=== PATIENT | female | born 1975 | race Caucasian/White ===

== ENCOUNTER 2016-12-10 12:01 | Emergency (ER) | payer SELFPAY ==
[2016-12-10 12:08] VITALS: BP 135/99
[2016-12-10] MEDS ORDERED: OXYCODONE-ACETAMINOPHEN 5-325 MG TABLET PO ONE (12:09)
[2016-12-10] MEDS ORDERED: PENICILLIN V POTASSIUM 500 MG TABLET PO ONE (12:09)
--- NOTE | 2016-12-10 12:12 | ER Document Report ---
HPI - HPI Patient complains to provider of: dental pain Onset: Other - 4 days Quality of pain: Achy, Throbbing Severity: Severe Pain Level: 5 Associated Symptoms: None Exacerbated by: Denies Relieved by: Denies Similar symptoms previously: No Recently seen / treated by doctor: No Past Medical History - General Information source: Patient - Social History Smoking Status: Unknown if Ever Smoked Cigarette use (# per day): No Chew tobacco use (# tins/day): No Frequency of alcohol use: None Drug Abuse: None Family History: None Past Surgical History: Reports: Hx Section Vertical Provider Document - CONSTITUTIONAL Agree With Documented VS: Yes Exam Limitations: No Limitations General Appearance: WD/WN, No Apparent Distress - HEENT HEENT: Atraumatic, Normocephalic. negative: Pharyngeal Exudate, Pharyngeal Erythema Mouth Diagram: 1 - c/o pain, opens mouth wide, no obvious cavity, no pustule, no erythema/no swelling, No peritonsillar abscess good clear voice no trismus - NECK Neck: Normal Inspection, Supple. negative: Lymphadenopathy-Left, Lymphadenopathy-Right - RESPIRATORY Respiratory: Breath Sounds Normal, No Respiratory Distress O2 Sat by Pulse Oximetry: 97 - CARDIOVASCULAR Cardiovascular: Regular Rate, Regular Rhythm - NEURO Level of Consciousness: Awake, Alert, Appropriate Motor/Sensory: No Motor Deficit - DERM Integumentary: Warm, Dry Course - Re-evaluation Re-evalutation: 12/10/16 Patient provided with written dental resource information. Patient also reports she has taken Percocet without problems. Instructed on the importance of follow-up with a dentist. - Vital Signs Vital signs: Temp Pulse Resp BP Pulse Ox 98.2 F 74 16 135/99 H 97 12/10/16 12:07 12/10/16 12:07 12/10/16 12:07 12/10/16 12:07 12/10/16 12:07 Discharge - Discharge Clinical Impression: Pain, dental, Elevated blood pressure reading Condition: Stable Disposition: HOME, SELF-CARE Instructions: Toothache ([facility]), Penicillin V K ([facility]), Acetaminophen with Codeine ([facility]) Additional Instructions: *You have been evaluated for dental pain *Take medications as prescribed *Follow up with a dentist *Monitor your blood pressure. Your blood pressure was elevated today. This may be because you were anxious, in pain or because you need medication. It is important to follow up with your primary care provider for full evaluation. *Return to ED for worsening condition, changes, needs Prescriptions: Acetaminophen with Codeine [Tylenol with Codeine #3 Tablet] 1 each PO QID #15 tablet Penicillin V Potassium [Penicillin Vk 500 mg Tablet] 500 mg PO BID #20 tablet Forms: Elevated Blood Pressure
== END 2016-12-10 12:25 | disposition home or self-care (01) ==
LOC: ER 12:01
DX: K08.89 Other specified disorders of teeth and supporting structures (principal); R03.0 Elevated blood-pressure reading, without diagnosis of hypertension
CPT/HCPCS: 99282

== ENCOUNTER 2017-01-06 16:34 | Emergency (ER) | payer SELFPAY ==
--- NOTE | 2017-01-06 17:03 | ER Document Report ---
ED Medical Screen (RME) - General Stated Complaint: DIZZINESS Notes: Patient complains of dizziness for a while. Also complains of increased urination. c/o cough. No known fever. Patient has a history of anemia. She states that while she is standing at her job, had starts spinning. I have greeted and performed a rapid initial assessment of this patient. A comprehensive ED assessment and evaluation of the patient, analysis of test results and completion of the medical decision making process will be conducted by additional ED providers. TRAVEL OUTSIDE OF THE [place] IN LAST 30 DAYS: No - Related Data Allergies/Adverse Reactions: No Known Allergies Allergy (Verified 01/06/17 17:01) Past Medical History Renal/ Medical History: Denies: Hx Peritoneal Dialysis Past Surgical History: Reports: Hx Section Physical Exam - Vital signs Vitals: Temp Pulse Resp BP Pulse Ox 98.1 F 71 16 124/72 98 01/06/17 16:50 01/06/17 16:50 01/06/17 16:50 01/06/17 16:50 01/06/17 16:50 - Notes Notes: Patient walks with steady gait. - Respiratory Respiratory status: No respiratory distress Breath sounds: Normal Course - Vital Signs Vital signs: Temp Pulse Resp BP Pulse Ox 98.1 F 71 16 124/72 98 01/06/17 16:50 01/06/17 16:50 01/06/17 16:50 01/06/17 16:50 01/06/17 16:50
[2017-01-06 17:34] LABS: ABSOLUTE BASOPHILS # (AUTO) 0.1 10^3/uL (0.0-0.2); ABSOLUTE EOSINOPHILS # (AUTO) 0.3 10^3/uL (0.0-0.6); ABSOLUTE LYMPHOCYTES (AUTO) 1.5 10^3/uL (0.5-4.7); ABSOLUTE MONOCYTES (AUTO) 0.5 10^3/uL (0.1-1.4); ABSOLUTE NEUT (AUTO) 4.2 10^3/uL (1.7-8.2); BASOPHILS % (AUTO) 0.9 % (0-2); EOSINOPHILS % (AUTO) 4.2 % (0-6); HEMATOCRIT 29.7 % (36.0-47.0); HEMOGLOBIN 9.3 g/dL (12.0-15.5); HGB HCT DIFFERENCE -1.8; MEAN CORPUSCULAR HEMOGLOBIN 22.2 pg (27.0-33.4); MEAN CORPUSCULAR HGB CONC 31.2 g/dL (32.0-36.0); MEAN CORPUSCULAR VOLUME 71 fl (80-97); MONOCYTES % (AUTO) 8.2 % (3-13); RED BLOOD COUNT 4.18 10^6/uL (3.72-5.28); RED CELL DISTRIBUTION WIDTH 18.3 % (11.5-14.0); SEGMENTED NEUTROPHILS % (AUTO) 63.7 % (42-78); WHITE BLOOD COUNT 6.6 10^3/uL (4.0-10.5)
[2017-01-06 17:56] LABS: ALANINE AMINOTRANSFERASE 18 U/L (9-52); ALKALINE PHOSPHATASE 58 U/L (38-126); ANION GAP 12 (5-19); ASPARTATE AMINO TRANSFERASE 23 U/L (14-36); BILIRUBIN,DIRECT 0.2 mg/dL (0.0-0.4); BILIRUBIN,TOTAL 0.4 mg/dL (0.2-1.3); BLOOD UREA NITROGEN 15 mg/dL (7-20); CALCIUM 9.5 mg/dL (8.4-10.2); CARBON DIOXIDE 27 mmol/L (22-30); CHLORIDE 104 mmol/L (98-107); CREATININE RESULT 0.59 mg/dL (0.52-1.25); GLUCOSE 77 mg/dL (75-110); LIPASE 93.8 U/L (23-300); POTASSIUM 3.8 mmol/L (3.6-5.0); SODIUM 143.2 mmol/L (137-145); TOTAL PROTEIN 7.5 g/dL (6.3-8.2)
[2017-01-06 17:58] LABS: APPEARANCE,URINE CLEAR; BILIRUBIN,URINE NEGATIVE (NEGATIVE); GLUCOSE, URINE NEGATIVE (NEGATIVE); KETONES,URINE NEGATIVE (NEGATIVE); LEUKOCYTE ESTERASE,URINE TRACE (NEGATIVE); NITRITE,URINE NEGATIVE (NEGATIVE); PROTEIN,URINE 30 mg/dL (NEGATIVE); URINE SPECIFIC GRAVITY 1.012; UROBILINOGEN,URINE NEGATIVE mg/dL (<2.0)
--- NOTE | 2017-01-06 18:13 | ER Document Report ---
ED General - General Chief Complaint: Urinary Frequency Stated Complaint: DIZZINESS Mode of Arrival: Ambulatory Information source: Patient Notes: 41-year-old female presents with complaints of left flank pain urinary frequency. Patient notes she's urinated 7 times in one hour. Denies any fevers or chills admits to mild nausea TRAVEL OUTSIDE OF THE [place] IN LAST 30 DAYS: No - HPI Onset: Just prior to arrival Onset/Duration: Sudden Quality of pain: Achy Severity: Mild Pain Level: 1 Associated symptoms: Nausea Exacerbated by: Denies Relieved by: Denies Similar symptoms previously: No Recently seen / treated by doctor: No - Related Data Allergies/Adverse Reactions: No Known Allergies Allergy (Verified 01/06/17 17:01) Past Medical History - Social History Smoking Status: Never Smoker Cigarette use (# per day): No Chew tobacco use (# tins/day): No Smoking Education Provided: No Family History: None Renal/ Medical History: Denies: Hx Peritoneal Dialysis Past Surgical History: Reports: Hx Section Review of Systems - Review of Systems Notes: REVIEW OF SYSTEMS: CONSTITUTIONAL : Denies fever, chills, or sweats. Denies recent illness. EENT: Denies eye, ear, throat, or mouth pain or symptoms. Denies nasal or sinus congestion or discharge. Denies throat, tongue, or mouth swelling or difficulty swallowing. CARDIOVASCULAR: Denies chest pain. Denies palpitations or racing or irregular heart beat. Denies ankle edema. RESPIRATORY: Denies cough, cold, or chest congestion. Denies shortness of breath, difficulty breathing, or wheezing. GASTROINTESTINAL: Admits to left flank pain nausea GENITOURINARY: Admits to urinary frequency FEMALE GENITOURINARY: Denies vaginal bleeding, heavy or abnormal periods, irregular periods. Denies vaginal discharge or odor. MUSCULOSKELETAL: Denies back or neck pain or stiffness. Denies joint pain or swelling. SKIN: Denies rash, lesions or sores. HEMATOLOGIC : Denies easy bruising or bleeding. LYMPHATIC: Denies swollen, enlarged glands. NEUROLOGICAL: Denies confusion or altered mental status. Denies passing out or loss of consciousness. Denies dizziness or lightheadedness. Denies headache. Denies weakness or paralysis or loss of use of either side. Denies problems with gait or speech. Denies sensory loss, numbness, or tingling. Denies seizures. PSYCHIATRIC: Denies anxiety or stress. Denies depression, suicidal ideation, or homicidal ideation. ALL OTHER SYSTEMS REVIEWED AND NEGATIVE. Dictation was performed using [id number] voice recognition software PHYSICAL EXAMINATION: GENERAL: Well-appearing, well-nourished and in no acute distress. HEAD: Atraumatic, normocephalic. EYES: Pupils equal round and reactive to light, extraocular movements intact, conjunctiva are normal. ENT: Nares patent, oropharynx clear without exudates. Moist mucous membranes. NECK: Normal range of motion, supple without lymphadenopathy LUNGS: Breath sounds clear to auscultation bilaterally and equal. No wheezes rales or rhonchi. HEART: Regular rate and rhythm without murmurs ABDOMEN: Soft, nontender, nondistended abdomen. No guarding, no rebound. No masses appreciated. Mild left CVA tenderness Female : deferred Musculoskeletal: Normal range of motion, no pitting or edema. No cyanosis. NEUROLOGICAL: Cranial nerves grossly intact. Normal speech, normal gait. Normal sensory, motor exams PSYCH: Normal mood, normal affect. SKIN: Warm, Dry, normal turgor, no rashes or lesions noted. Physical Exam - Vital signs Vitals: Temp Pulse Resp BP Pulse Ox 98.1 F 71 16 124/72 98 01/06/17 16:50 01/06/17 16:50 01/06/17 16:50 01/06/17 16:50 01/06/17 16:50 Course - Re-evaluation Re-evalutation: 01/06/17 18:16 Patient has questionable urinary tract infection but given her symptoms I will treat her for her complaints. Patient's otherwise stable for discharge After performing a Medical Screening Examination, I estimate there is LOW risk for ACUTE APPENDICITIS, BOWEL OBSTRUCTION, ACUTE CHOLECYSTITIS, PERFORATED DIVERTICULITIS, INCARCERATED HERNIA, PANCREATITIS, PELVIC INFLAMMATORY DISEASE, PERFORATED ULCER, ECTOPIC , or TUBO-OVARIAN ABSCESS, thus I consider the discharge disposition reasonable. Also, there is no evidence or peritonitis , sepsis, or toxicity. The patient and I have discussed the diagnosis and risks , and we agree with discharging home with close follow-up with the understanding that symptoms and presentations can change. We also discussed returning to the Emergency Department immediately if new or worsening symptoms occur. We have discussed the symptoms which are most concerning (e.g., bloody stool, fever, changing or worsening pain, vomiting) that necessitate immediate return. - Vital Signs Vital signs: Temp Pulse Resp BP Pulse Ox 98.1 F 71 16 124/72 98 01/06/17 16:50 01/06/17 16:50 01/06/17 16:50 01/06/17 16:50 01/06/17 16:50 - Laboratory Result Diagrams: 01/06/17 17:10 01/06/17 17:10 Laboratory results interpreted by me: 01/06/17 01/06/17 17:10 17:10 Hgb 9.3 L Hct 29.7 L MCV 71 L MCH 22.2 L MCHC 31.2 L RDW 18.3 H Urine Protein 30 H Urine Blood LARGE H Ur Leukocyte Esterase TRACE H Discharge - Discharge Clinical Impression: Urinary frequency UTI (urinary tract infection) Qualifiers: Urinary tract infection type: acute cystitis Hematuria presence: with hematuria Qualified Code(s): N30.01 - Acute cystitis with hematuria Instructions: Urinary Tract Infection ([facility]) Additional Instructions: Follow up with your physician tomorrow for further care or return to the ED IMMEDIATELY if symptoms worsen or new concerns occur Prescriptions: Ciprofloxacin HCl [Cipro 500 mg Tablet] 500 mg PO BID #10 tablet Ondansetron [Zofran Odt 4 mg Tablet] 1 - 2 tab PO Q4H PRN #15 tab.rapdis PRN Reason: For Nausea/Vomiting
[2017-01-06 18:34] VITALS: BP 134/70
== END 2017-01-06 18:43 | disposition home or self-care (01) ==
LOC: ER 16:34
DX: N30.01 Acute cystitis with hematuria (principal); R35.0 Frequency of micturition; R42 Dizziness and giddiness; R10.9 Unspecified abdominal pain
CPT/HCPCS: 36415; 80053; 81001; 83690; 84702; 85025; 99283

== ENCOUNTER 2017-02-13 19:54 | Emergency (ER) | payer SELFPAY ==
[2017-02-13] MEDS ORDERED: HYDROCODONE/ACETAMINOPHEN 5-325 MG TABLET PO ONE (20:50)
--- NOTE | 2017-02-13 20:53 | ER Document Report ---
ED General - General Chief Complaint: Toothache Stated Complaint: TOOTH ACHE,CHEST PAIN Mode of Arrival: Ambulatory Information source: Patient Notes: Patient is a 41-year-old female who presents with right lower jaw and tooth pain that started 2 days ago. She states she has been seen at the [facility] and saw a dentist who "tapped on her teeth with a metal tool" and she has had pain ever since. She states the pain is radiating into her jaw and up the side of her face. She has tried [id number] pain medication which has not provided relief. She denies any facial swelling, dizziness, headache, fever, chills, nausea or vomiting. TRAVEL OUTSIDE OF THE [place] IN LAST 30 DAYS: No - Related Data Allergies/Adverse Reactions: No Known Allergies Allergy (Verified 01/06/17 17:01) Past Medical History - General Information source: Patient - Social History Smoking Status: Unknown if Ever Smoked Family History: None Renal/ Medical History: Denies: Hx Peritoneal Dialysis Past Surgical History: Reports: Hx Section Review of Systems - Review of Systems Constitutional: See HPI EENT: See HPI Cardiovascular: No symptoms reported Respiratory: No symptoms reported Gastrointestinal: No symptoms reported Genitourinary: No symptoms reported Female Genitourinary: No symptoms reported Musculoskeletal: No symptoms reported Skin: No symptoms reported Hematologic/Lymphatic: No symptoms reported Neurological/Psychological: No symptoms reported Physical Exam - Notes Notes: PHYSICAL EXAM: CONSTITUTIONAL: Alert and oriented, well-appearing and in no acute distress. HENT: Normocephalic, atraumatic. Oropharynx clear without erythema, tonsilar exudate or malocclusion. Trachea midline. Uvula midline. Moist mucous membranes. No gingival or buccal mucosal swelling or area of fluctuance that would indicate a dental abscess. She is tender around the gumline around tooth # 32 and 31. EYES: Pupils equal round and reactive to light, EOM intact. Sclera anicteric, conjunctiva are normal. No entrapment. NECK: supple without lymphadenopathy. ROM intact. HEART: Regular rate and rhythm without murmurs. LUNGS: CTAB and equal. No wheezes, rales or rhonchi. EXTREMITIES: Normal range of motion, no pitting edema. No cyanosis. Cap Refill < 3 seconds. NEURO: Cranial nerves grossly intact. Normal sensory/motor exams. PSYCH: Normal mood, normal affect. SKIN: Warm and dry. Normal turgor. No rashes or lesions noted. Course - Re-evaluation Re-evalutation: 02/13/17 21:23 Patient seen and examined. Given by mouth pain medication. No evidence of cellulitis, dental abscess. At this time low suspicion for Ludwigs angina. Discussed need for her to follow-up with dentist. Advised to return if she expands a severe pain, swelling, fever or chills. Will provide prescription for antibiotics for empiric coverage as well as pain medication. At this time, will discharge with return precautions and follow-up recommendations. Verbal discharge instructions given at the bedside and opportunity for questions given. Medication warnings reviewed. Patient is in agreement with this plan and has verbalized understanding of return precautions and the need for primary care follow-up in the next 24-72 hours. Discharge - Discharge Clinical Impression: Toothache Condition: Stable Disposition: HOME, SELF-CARE Instructions: [facility] Additional Instructions: TOOTHACHE: Your pain is due to dental decay. The tooth must be repaired in order for you to feel better. You will, therefore, be referred to a dentist. We do not have dentists on the staff at [facility]. Severe swelling or drainage around a tooth usually means a dental abscess. This also requires evaluation and treatment by the dentist, but antibiotics may be prescribed while awaiting dental treatment. You should be rechecked immediately if you develop major swelling of the face, increasing pain, a lump in the jaw or gums, headache, difficulty swallowing, or fever. ORAL NARCOTIC MEDICATION: You have been given a prescription for pain control. This medication is a narcotic. It's best taken with food, as nausea can result if taken on an empty stomach. Don't operate machinery or drive within six hours of taking this medication. Do not combine this medicine with alcohol, or with any medication which can cause sedation (such as cold tablets or sleeping pills) unless you get permission from the physician. Narcotics tend to cause constipation. If possible, drink plenty of fluids and eat a diet high in fiber and fruits. Please be aware that prescription narcotics also have the potential for abuse. People become addicted to these medications because of the general sense of wellbeing that they induce. This feeling along with a significant reduction in tension, anxiety, and aggression provides a stimulating seductive quality to these drugs. Once your pain is under control, we encourage you to discard your unused narcotics. FOLLOW-UP CARE: You have been referred for follow-up care to the dentists listed below. Call the dentists office for an appointment as you were instructed or within the next two days. If you experience worsening or a significant change in your symptoms, notify the physician immediately or return to the Emergency Department at any time for re-evaluation. [facility] [place] [facility] [address] [place], [place] Joo mornings, by appointment [facility] [address] [place] [address] [facility] [address] [facility] [address] [facility] [address] [email or web address] [facility] [address] [place] [address] Monday- 8:00am to 5:00 pm Will see patients from other [facility]. Charges based on income and family size and accepts Medicare, Medicaid, and Insurances Will pull molars [facility] [id number] Hours of Operation 8:00 am - 4:30 pm weekdays The following dental offices accept Medicaid: [facility] Dr. Levine Dr. Jacobs Dr. Moreno Dr. Cano Albert Yang Lutsavage, and [facility] oral surgery Dr. Cheng ([place]) Dr. Reyes ([place]) [facility] Drs. Figueredo and Yogesh ([place]) Dr. Mayo ([place]) [facility] Dr. Manriquez ([place]) Drs. Loera and ([place]) Medicaid Care Line Prescriptions: Amox Tr/Potassium Clavulanate [Augmentin 875-125 Tablet] 1 tab PO BID 10 Days Hydrocodone/Acetaminophen [[place] 5-325 mg Tablet] 1 tab PO Q6H PRN #10 tablet PRN Reason: Naproxen [Naprosyn 250 mg Tablet] 250 mg PO DAILY PRN #14 tablet PRN Reason: Forms: Elevated Blood Pressure
[2017-02-13 21:36] VITALS: BP 165/100
== END 2017-02-13 21:35 | disposition home or self-care (01) ==
LOC: ER 19:54
DX: K08.89 Other specified disorders of teeth and supporting structures (principal); Z98.890 Other specified postprocedural states
CPT/HCPCS: 99282

== ENCOUNTER 2017-07-23 15:50 | Emergency (ER) | payer SELFPAY ==
--- NOTE | 2017-07-23 17:14 | ER Document Report ---
ED GI/ - General Mode of Arrival: Ambulatory Information source: Patient TRAVEL OUTSIDE OF THE U.S. IN LAST 30 DAYS: No <ALONDRA CASTRO - Last Filed: 07/23/17 17:57> <ALICIA HUSAIN - Last Filed: 07/23/17 18:08> - General Chief Complaint: Pelvic Pain Stated Complaint: PELVIC PAIN,DIZZY,BACK PAIN Time Seen by Provider: 07/23/17 16:37 Notes: Patient is a 41-year-old female presenting to the emergency department for multiple symptoms including hematuria, abdominal and back pain, headache, dizziness and frequency. Patient states that her last menstrual period was 2016. Patient states that she is not supposed to be on her menstrual period but that she noticed some blood in her urine recently. Patient states her abdominal and back pain is waxing and waning. Patient states she has pain after she urinates but denies any burning sensations. Patient states that she has a history of tubal ligation, kidney stones and UTIs. Patient also complains of chills and sweats but denies any known fever. (ALONDRA CASTRO) - Related Data Allergies/Adverse Reactions: No Known Allergies Allergy (Verified 07/23/17 16:02) Past Medical History - General Information source: Patient - Social History Smoking Status: Former Smoker Cigarette use (# per day): No Chew tobacco use (# tins/day): No Smoking Education Provided: No Frequency of alcohol use: None Drug Abuse: None Family History: None Patient has suicidal ideation: No Patient has homicidal ideation: No Renal/ Medical History: Reports: Hx Kidney Stones Past Surgical History: Reports: Hx Section, Hx Tubal Ligation - Immunizations Hx Diphtheria, Pertussis, Tetanus Vaccination: No <ALONDRA CASTRO - Last Filed: 07/23/17 17:57> Review of Systems - Review of Systems Constitutional: See HPI, Chills, Malaise, Weakness EENT: No symptoms reported Cardiovascular: See HPI, Dizziness. denies: Chest pain Respiratory: No symptoms reported Gastrointestinal: See HPI, Abdominal pain. denies: Diarrhea, Nausea, Vomiting Genitourinary: See HPI, Dysuria - pain after urinating, Frequency. denies: Burning Female Genitourinary: See HPI, Last menstrual period - 07/03/17 Musculoskeletal: See HPI, Back pain Skin: No symptoms reported Hematologic/Lymphatic: No symptoms reported Neurological/Psychological: See HPI, Headaches -: Yes All other systems reviewed and negative <ALONDRA CASTRO - Last Filed: 07/23/17 17:57> Physical Exam <ALONDRA CASTRO - Last Filed: 07/23/17 17:57> <ALICIA HUSAIN - Last Filed: 07/23/17 18:08> - Vital signs Vitals: Temp Pulse Resp BP Pulse Ox 98.4 F 78 16 148/95 H 98 07/23/17 16:02 07/23/17 16:02 07/23/17 16:02 07/23/17 16:02 07/23/17 16:02 - Notes Notes: GENERAL: Alert, interacts well. No acute distress. HEAD: Normocephalic, atraumatic. EYES: Pupils equal, round, and reactive to light. Extraocular movements intact. ENT: Oral mucosa moist, tongue midline. NECK: Full range of motion. Supple. Trachea midline. LUNGS: Clear to auscultation bilaterally, no wheezes, rales, or rhonchi. No respiratory distress. HEART: Regular rate and rhythm. No murmurs, gallops, or rubs. ABDOMEN: Soft, non-tender. Non-distended. Bowel sounds present in all 4 quadrants. EXTREMITIES: Moves all 4 extremities spontaneously. No edema. No cyanosis. NEUROLOGICAL: Alert and oriented x3. Normal speech. PSYCH: Normal affect, normal mood. SKIN: Warm, dry, normal turgor. No rashes or lesions noted. (ALONDRA CASTRO) Course - Laboratory Result Diagrams: 07/23/17 17:00 07/23/17 17:00 <ALONDRA CASTRO - Last Filed: 07/23/17 17:57> - Laboratory Result Diagrams: 07/23/17 17:00 07/23/17 17:00 <ALICIA HUSAIN - Last Filed: 07/23/17 18:08> - Re-evaluation Re-evalutation: 07/23/17 17:53 CBC shows mild anemia with hemoglobin 10.6, CMP grossly unremarkable, test is negative, urinalysis shows trace leukocyte esterase, no true evidence of urinary tract infection however this will be sent for culture given her symptoms, patient may well be perimenopausal, when inquiring about the age at which her mother had menopause patient states she never met her genetic mother so she does not know the answer to this question. Patient is recommended to follow-up with her [facility] for further testing should she continue to have irregular periods. 07/23/17 17:54 Patient was offered a muscle relaxer for her low back pain, does not have any signs of cauda equina. (ALICIA HUSAIN) - Vital Signs Vital signs: Temp Pulse Resp BP Pulse Ox 98.6 F 54 L 20 118/94 H 100 07/23/17 17:53 07/23/17 17:53 07/23/17 17:53 07/23/17 17:53 07/23/17 17:53 - Laboratory Laboratory results interpreted by me: 07/23/17 07/23/17 07/23/17 17:00 17:00 17:00 Hgb 10.6 L Hct 34.1 L MCV 72 L MCH 22.3 L MCHC 31.2 L RDW 18.8 H Glucose 70 L Ur Leukocyte Esterase TRACE H Discharge <ALONDAR CASTRO - Last Filed: 07/23/17 17:57> <ALICIA HUSAIN - Last Filed: 07/23/17 18:08> - Discharge Clinical Impression: Vaginal bleeding between periods Hypertension Qualifiers: Hypertension type: essential hypertension Qualified Code(s): I10 - Essential ( primary) hypertension Low back pain Qualifiers: Chronicity: acute Back pain laterality: bilateral Sciatica presence: without sciatica Qualified Code(s): M54.5 - Low back pain Condition: Stable Disposition: HOME, SELF-CARE Instructions: Low Back Pain ([facility]), Menopausal Symptoms ([facility]), Vaginal Bleeding ([facility]) Prescriptions: Methocarbamol [Robaxin 750 mg Tablet] 750 mg PO ASDIR PRN #40 tablet PRN Reason: Print Language: Czech Scribe Attestation: 07/23/17 18:08 I personally performed the services described in the documentation, reviewed and edited the documentation which was dictated to the scribe in my presence, and it accurately records my words and actions. (ALICIA HUSAIN) Scribe Documentation - Scribe Written by Frederick:: Frederick Collins, 07/23/17 17:45 acting as scribe for Dr.:: Rosa <ALONDRA CASTRO - Last Filed: 07/23/17 17:57>
[2017-07-23 17:15] LABS: ABSOLUTE BASOPHILS # (AUTO) 0.1 10^3/uL (0.0-0.2); ABSOLUTE EOSINOPHILS # (AUTO) 0.3 10^3/uL (0.0-0.6); ABSOLUTE LYMPHOCYTES (AUTO) 2.2 10^3/uL (0.5-4.7); ABSOLUTE MONOCYTES (AUTO) 0.7 10^3/uL (0.1-1.4); ABSOLUTE NEUT (AUTO) 4.1 10^3/uL (1.7-8.2); APPEARANCE,URINE CLEAR; BILIRUBIN,URINE NEGATIVE (NEGATIVE); EOSINOPHILS % (AUTO) 3.7 % (0-6); GLUCOSE, URINE NEGATIVE (NEGATIVE); HEMATOCRIT 34.1 % (36.0-47.0); HEMOGLOBIN 10.6 g/dL (12.0-15.5); HGB HCT DIFFERENCE -2.3; KETONES,URINE NEGATIVE (NEGATIVE); LEUKOCYTE ESTERASE,URINE TRACE (NEGATIVE); MEAN CORPUSCULAR HEMOGLOBIN 22.3 pg (27.0-33.4); MEAN CORPUSCULAR HGB CONC 31.2 g/dL (32.0-36.0); MEAN CORPUSCULAR VOLUME 72 fl (80-97); NITRITE,URINE NEGATIVE (NEGATIVE); PROTEIN,URINE NEGATIVE (NEGATIVE); RED BLOOD COUNT 4.75 10^6/uL (3.72-5.28); RED CELL DISTRIBUTION WIDTH 18.8 % (11.5-14.0); SEGMENTED NEUTROPHILS % (AUTO) 55.3 % (42-78); UROBILINOGEN,URINE NEGATIVE mg/dL (<2.0); WHITE BLOOD COUNT 7.4 10^3/uL (4.0-10.5)
[2017-07-23 17:31] LABS: ALANINE AMINOTRANSFERASE 24 U/L (9-52); ALBUMIN 4.3 g/dL (3.5-5.0); ALKALINE PHOSPHATASE 56 U/L (38-126); ANION GAP 12 (5-19); ASPARTATE AMINO TRANSFERASE 20 U/L (14-36); BILIRUBIN,DIRECT 0.4 mg/dL (0.0-0.4); BILIRUBIN,TOTAL 0.5 mg/dL (0.2-1.3); BLOOD UREA NITROGEN 12 mg/dL (7-20); CALCIUM 9.5 mg/dL (8.4-10.2); CARBON DIOXIDE 26 mmol/L (22-30); CHLORIDE 104 mmol/L (98-107); CREATININE RESULT 0.56 mg/dL (0.52-1.25); GLUCOSE 70 mg/dL (75-110); POTASSIUM 3.8 mmol/L (3.6-5.0); TOTAL PROTEIN 7.8 g/dL (6.3-8.2)
[2017-07-23 17:54] VITALS: BP 118/94
== END 2017-07-23 18:05 | disposition home or self-care (01) ==
LOC: ER 15:50
DX: N93.8 Other specified abnormal uterine and vaginal bleeding (principal); I10 Essential (primary) hypertension; M54.5 Low back pain; R10.2 Pelvic and perineal pain; R42 Dizziness and giddiness; R31.9 Hematuria, unspecified; R68.83 Chills (without fever); Z87.891 Personal history of nicotine dependence; Z98.51 Tubal ligation status; Z87.442 Personal history of urinary calculi; Z87.440 Personal history of urinary (tract) infections
CPT/HCPCS: 36415; 80053; 81001; 84703; 85025; 87086; 99284

== ENCOUNTER 2017-07-30 16:13 | Emergency (ER) | payer SELFPAY ==
[2017-07-30 16:29] VITALS: BP 124/79
[2017-07-30] MEDS ORDERED: HYDROCODONE/ACETAMINOPHEN 5-325 MG TABLET PO ONE (16:44)
--- NOTE | 2017-07-30 16:46 | ER Document Report ---
ED Medical Screen (RME) - General Chief Complaint: Abdominal Pain Stated Complaint: TOOTHACHE, DIZZINESS Time Seen by Provider: 07/30/17 16:29 Mode of Arrival: Ambulatory Information source: Patient TRAVEL OUTSIDE OF THE [place] IN LAST 30 DAYS: No - HPI Patient complains to provider of: Pelvic pain with abnormal bleeding for at least 2 weeks, toothache Notes: 07/30/17 16:45 Patient is a 41-year-old female presenting to the emergency room today complaining of abnormal vaginal bleeding that has been going on for at least the past 2 weeks, she is feeling generalized weakness associated with this, she is also complaining of a toothache that started bothering her this morning - Related Data Allergies/Adverse Reactions: No Known Allergies Allergy (Verified 07/23/17 16:02) Past Medical History Renal/ Medical History: Reports: Hx Kidney Stones. Denies: Hx Peritoneal Dialysis Past Surgical History: Reports: Hx Section, Hx Tubal Ligation - Immunizations Hx Diphtheria, Pertussis, Tetanus Vaccination: No History of Influenza Vaccine for 07/2017 - 12/2017 Season: Unknown Physical Exam - Vital signs Vitals: Temp Pulse Resp BP Pulse Ox 98.8 F 71 20 124/79 98 07/30/17 16:26 07/30/17 16:26 07/30/17 16:26 07/30/17 16:26 07/30/17 16:26 Course - Vital Signs Vital signs: Temp Pulse Resp BP Pulse Ox 98.8 F 71 20 124/79 98 07/30/17 16:26 07/30/17 16:26 07/30/17 16:26 07/30/17 16:26 07/30/17 16:26
[2017-07-30 17:51] LABS: APPEARANCE,URINE SLIGHTLY-CLOUDY; BILIRUBIN,URINE NEGATIVE (NEGATIVE); GLUCOSE, URINE NEGATIVE (NEGATIVE); KETONES,URINE NEGATIVE (NEGATIVE); LEUKOCYTE ESTERASE,URINE MODERATE (NEGATIVE); NITRITE,URINE NEGATIVE (NEGATIVE); PROTEIN,URINE 30 mg/dL (NEGATIVE); URINE SPECIFIC GRAVITY 1.023; UROBILINOGEN,URINE NEGATIVE mg/dL (<2.0)
[2017-07-30 17:56] LABS: ABSOLUTE BASOPHILS # (AUTO) 0.1 10^3/uL (0.0-0.2); ABSOLUTE EOSINOPHILS # (AUTO) 0.2 10^3/uL (0.0-0.6); ABSOLUTE LYMPHOCYTES (AUTO) 2.1 10^3/uL (0.5-4.7); ABSOLUTE MONOCYTES (AUTO) 0.6 10^3/uL (0.1-1.4); ABSOLUTE NEUT (AUTO) 3.5 10^3/uL (1.7-8.2); BASOPHILS % (AUTO) 1.4 % (0-2); EOSINOPHILS % (AUTO) 3.6 % (0-6); HEMATOCRIT 33.5 % (36.0-47.0); HEMOGLOBIN 10.5 g/dL (12.0-15.5); LYMPHOCYTES % (AUTO) 32.1 % (13-45); MEAN CORPUSCULAR HEMOGLOBIN 22.7 pg (27.0-33.4); MEAN CORPUSCULAR HGB CONC 31.4 g/dL (32.0-36.0); MEAN CORPUSCULAR VOLUME 72 fl (80-97); MONOCYTES % (AUTO) 9.8 % (3-13); RED BLOOD COUNT 4.63 10^6/uL (3.72-5.28); RED CELL DISTRIBUTION WIDTH 19.1 % (11.5-14.0); SEGMENTED NEUTROPHILS % (AUTO) 53.1 % (42-78); WHITE BLOOD COUNT 6.6 10^3/uL (4.0-10.5)
[2017-07-30 18:11] LABS: ALANINE AMINOTRANSFERASE 21 U/L (9-52); ALBUMIN 4.1 g/dL (3.5-5.0); ALKALINE PHOSPHATASE 71 U/L (38-126); ANION GAP 12 (5-19); ASPARTATE AMINO TRANSFERASE 18 U/L (14-36); BILIRUBIN,DIRECT 0.3 mg/dL (0.0-0.4); BILIRUBIN,TOTAL 0.3 mg/dL (0.2-1.3); BLOOD UREA NITROGEN 12 mg/dL (7-20); CALCIUM 9.4 mg/dL (8.4-10.2); CARBON DIOXIDE 27 mmol/L (22-30); CHLORIDE 105 mmol/L (98-107); CREATININE RESULT 0.59 mg/dL (0.52-1.25); GLUCOSE 82 mg/dL (75-110); POTASSIUM 4.3 mmol/L (3.6-5.0); SODIUM 143.8 mmol/L (137-145); TOTAL PROTEIN 7.6 g/dL (6.3-8.2)
[2017-07-30] MEDS ORDERED: ONDANSETRON ODT 4 MG TAB (6 TAB/DSPK) PO PRN (19:33)
[2017-07-30] MEDS ORDERED: PENICILLIN V POTASSIUM 500 MG TABLET PO ONE (19:33)
[2017-07-30] MEDS ORDERED: HYDROCODONE/ACETAMINOPHEN 5-325 MG 6 TAB/DSPK PO PRN (19:34)
--- NOTE | 2017-07-30 19:34 | ER Document Report ---
ED General - General Chief Complaint: Abdominal Pain Stated Complaint: TOOTHACHE, DIZZINESS Time Seen by Provider: 07/30/17 16:29 Mode of Arrival: Ambulatory Information source: Patient Notes: This is a 41-year-old female who presents to the emergency room with right- sided toothache to the lower side, dizziness, feeling weak, irregular. With heavy bleeding over the past 2 weeks. TRAVEL OUTSIDE OF THE [place] IN LAST 30 DAYS: No - Related Data Allergies/Adverse Reactions: No Known Allergies Allergy (Verified 07/23/17 16:02) Past Medical History - General Information source: Patient - Social History Smoking Status: Unknown if Ever Smoked Family History: None Patient has suicidal ideation: No Patient has homicidal ideation: No Renal/ Medical History: Reports: Hx Kidney Stones. Denies: Hx Peritoneal Dialysis Past Surgical History: Reports: Hx Section, Hx Tubal Ligation - Immunizations Hx Diphtheria, Pertussis, Tetanus Vaccination: No Physical Exam - Vital signs Vitals: Temp Pulse Resp BP Pulse Ox 98.8 F 71 20 124/79 98 07/30/17 16:26 07/30/17 16:26 07/30/17 16:26 07/30/17 16:26 07/30/17 16:26 Notes: Physical exam: GENERAL: 41-year-old female, alert and oriented 3, no acute distress HEAD: Atraumatic, normocephalic. EYES: Pupils equal round and reactive to light, extraocular movements intact, sclera anicteric, conjunctiva are normal. ENT: TMs normal, nares patent, oropharynx clear without exudates. Patient does have tenderness to the right lower mandible without any obvious erythema or swelling. Patient does have some tenderness to the right lower premolar without any obvious abscess at the base of the tooth. NECK: Normal range of motion, supple without obvious mass or JVD. LUNGS: Breath sounds clear to auscultation bilaterally and equal. No wheezes rales or rhonchi. HEART: Regular rate and rhythm without murmurs, rubs or gallops. ABDOMEN: Soft, normoactive bowel sounds. No tenderness to palpation. No guarding, no rebound. No masses appreciated. EXTREMITIES: Normal range of motion, no pitting or edema. No clubbing or cyanosis. NEUROLOGICAL: Cranial nerves II through XII grossly intact. Normal speech, moving all extremities. PSYCH: Normal mood, normal affect. SKIN: Warm, Dry, normal turgor, no rashes or lesions noted. Course - Vital Signs Vital signs: Temp Pulse Resp BP Pulse Ox 98.8 F 71 20 124/79 98 07/30/17 16:26 07/30/17 16:26 07/30/17 16:26 07/30/17 16:26 07/30/17 16:26 - Laboratory Result Diagrams: 07/30/17 17:34 07/30/17 17:34 Laboratory results interpreted by me: 07/30/17 07/30/17 17:19 17:34 Hgb 10.5 L Hct 33.5 L MCV 72 L MCH 22.7 L MCHC 31.4 L RDW 19.1 H Urine Protein 30 H Urine Blood LARGE H Ur Leukocyte Esterase MODERATE H Discharge - Discharge Clinical Impression: Dental caries, Anemia Menorrhagia Qualifiers: Menorrahagia type: with irregular cycle Qualified Code(s): N92.1 - Excessive and frequent menstruation with irregular cycle Condition: Stable Disposition: HOME, SELF-CARE Instructions: Anemia ([facility]), Menorrhagia ([facility]), Toothache ([facility]) Additional Instructions: Thank you for choosing [facility] for your care. The examination and treatment you have received in the Emergency Department today has been rendered on an emergency basis only and is not intended to be a substitute for complete medical care. You should contact your follow-up physician as it is important that he or she examine you for any new or remaining problems. If given a copy of any lab tests or radiology reports, please bring them with you when you see your physician. If your problem worsens or new symptoms appear and you are unable to arrange prompt follow-up care, return to the Emergency Department. Specific signs to look out for: Persistent vomiting, worsening pain to the teeth or swelling of the face, abdominal pain. Any other instructions: [facility] with [facility] and [facility]: Call tomorrow for the next available appointment. It may take a while to get in. Take the pain medicines as prescribed. Take the antibiotics as prescribed. Take the nausea medicine as prescribed. The pain medicine you're taking prescribed as a narcotic. There are several important things you should know about this medicine: 1. This medicine contains Tylenol: It is important that you do not take Tylenol (or acetaminophen) while on this medicine. Tylenol is metabolized by the liver and taking too much Tylenol (acetaminophen) can lay to liver damage and even liver failure. 2. Taking narcotics for too long can lead to physical and mental dependence. Take this medicine only if really needed and in the lowest quantity to achieve pain relief. 3. Do not drink alcohol while on this medicine. Alcohol interacts with narcotics and the combination can be dangerous. 4. Do not drive or operate machinery while on this medicine. 5. Narcotics do cause constipation, so drink plenty of fluids and daily stool softeners. Prescriptions: Oxycodone HCl/Acetaminophen [Percocet 5-325 mg Tablet] 1 - 2 tab PO ASDIR PRN # 25 tablet PRN Reason: Penicillin V Potassium [Penicillin Vk 500 mg Tablet] 500 mg PO QID #28 tablet Forms: Return to Work Referrals: [facility] [Provider Group] - Follow up tomorrow (This is the number for the [facility]. Call tomorrow for the next available appointment.) [facility] [Provider Group] - Follow up tomorrow (This is the number for the [facility] medical clinic. Call tomorrow for the next available appointment)
== END 2017-07-30 19:52 | disposition home or self-care (01) ==
LOC: ER 16:13
DX: K02.9 Dental caries, unspecified (principal); D64.9 Anemia, unspecified; N92.1 Excessive and frequent menstruation with irregular cycle; R42 Dizziness and giddiness; R10.9 Unspecified abdominal pain; Z87.442 Personal history of urinary calculi
CPT/HCPCS: 36415; 80053; 81001; 84703; 85025; 99284

== ENCOUNTER → 2017-09-14 | Outpatient (CLI) | payer OTHER ==
--- NOTE | 2017-09-14 16:25 | WOMENS IMAGING REPORT ---
EXAM DESCRIPTION: BILAT SCREENING MAMMO W/CAD COMPLETED DATE/TIME: 09/14/2017 9:52 am REASON FOR STUDY: SCREENING MAMMO Z12.31 ENCNTR SCREEN MAMMOGRAM FOR MALIGNANT NEOPLASM OF [place] COMPARISON: None. TECHNIQUE: Standard craniocaudal and mediolateral oblique views of each breast recorded using digita l acquisition. LIMITATIONS: None. FINDINGS: No masses, calcifications or architectural distortion. No areas of suspicion. Read with the assistance of CAD. .[facility] - R2 Cenova Version 1.3 .[facility] - R2 Cenova Version 1.3 .[facility] - R2 Cenova Version 2.4 .[facility] - R2 Cenova Version 2.4 .[facility] - R2 Senior Validation Engineer Version 9.2 IMPRESSION: NORMAL MAMMOGRAM. BIRADS 1. BREAST DENSITY: b. There are scattered areas of fibroglandular density. BIRAD: 1 NEGATIVE RECOMMENDATION: ROUTINE SCREENING COMMENT: The patient has been notified of the results by letter per SA requirements. Additional no tification policies are in place for contacting patient with suspicious or incomplete findings. Quality ID #[id number]: The [employer] recommends an annual screening mammogram for women aged 40 years or over. This facility utilizes a reminder system to ensure that all patients receive reminder letters, and/or direct phone calls for appointments. This includes reminders for routine scr eening mammograms, diagnostic mammograms, or other Breast Imaging Interventions when appropriate. Th is patient will be placed in the appropriate reminder system. The [employer] (ACR) has developed recommendations for screening MRI of the breast s in certain patient populations, to be used in conjunction with mammography. Breast MRI surveillanc e may be appropriate for women with more than 20% lifetime risk of developing breast cancer as deter mined by genetic testing, significant family history of the disease, or history of mantle radiation f or Hodgkins Disease. ACR Practice Guidelines 2008. TECHNICAL DOCUMENTATION: FINDING NUMBER: (1) ASSESSMENT: (1) JOB ID: [id number] [employer]- All Rights Reserved
== END ==
LOC: WI 09:09
DX: Z12.31 Encounter for screening mammogram for malignant neoplasm of breast (principal)
CPT/HCPCS: 77067; G0202

== ENCOUNTER 2017-11-19 16:09 | Emergency (ER) | payer OTHER ==
[2017-11-19] MEDS ORDERED: HYDROCODONE/ACETAMINOPHEN 5-325 MG TABLET PO ONE (17:36)
--- NOTE | 2017-11-19 17:37 | ER Document Report ---
ED Headache - General Chief Complaint: Headache Stated Complaint: HEAD INJURY AT WORK Time Seen by Provider: 11/19/17 17:29 Mode of Arrival: Ambulatory Information source: Patient Notes: Patient is a 42-year-old female who presents to the ER today for head injury yesterday at work. 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 Patient does not know if she had it on the floor or on the table. She states "it all happened so fast."She is admitting to some nausea and dizziness, neck pain to the left side of her neck. She denies loss of consciousness,vomiting, blurred vision. Patient states her headache is "like a throbbing and sharp pain all at once, only on the right side." TRAVEL OUTSIDE OF THE [place] IN LAST 30 DAYS: No - Related Data Allergies/Adverse Reactions: No Known Allergies Allergy (Verified 07/23/17 16:02) Past Medical History - General Information source: Patient - Social History Smoking Status: Unknown if Ever Smoked Family History: None Renal/ Medical History: Reports: Hx Kidney Stones. Denies: Hx Peritoneal Dialysis Past Surgical History: Reports: Hx Section, Hx Tubal Ligation - Immunizations Hx Diphtheria, Pertussis, Tetanus Vaccination: No Review of Systems - Review of Systems Constitutional: No symptoms reported EENT: No symptoms reported Cardiovascular: No symptoms reported Respiratory: No symptoms reported Gastrointestinal: No symptoms reported Genitourinary: No symptoms reported Female Genitourinary: No symptoms reported Musculoskeletal: No symptoms reported Skin: No symptoms reported Hematologic/Lymphatic: No symptoms reported Neurological/Psychological: See HPI Physical Exam - Vital signs Vitals: Temp Pulse Resp BP Pulse Ox 98.3 F 64 14 131/90 H 100 11/19/17 16:15 11/19/17 16:15 11/19/17 16:15 11/19/17 16:15 11/19/17 16:15 - Notes Notes: PHYSICAL EXAMINATION: GENERAL: Uncomfortable appearing, but in no acute distress. HEAD: Atraumatic, normocephalic. EYES: Pupils equal round and reactive to light, extraocular movements intact, sclera anicteric, conjunctiva are normal. NECK: Decreased range of motion with rotation to the left due to pain and with flexion due to pain, supple without lymphadenopathy LUNGS: CTAB and equal. No wheezes rales or rhonchi. HEART: Regular rate and rhythm without murmurs EXTREMITIES: Normal range of motion, no pitting edema. No cyanosis. NEUROLOGICAL: Cranial nerves grossly intact. Normal sensory/motor exams. Good and equal strength bilaterally, Kernig and Brudzinski's signs negative, Romberg' s test normal, normal heel to pope testing PSYCH: Normal mood, normal affect. SKIN: Warm, Dry, normal turgor, no rashes or lesions noted Course - Re-evaluation Re-evalutation: 11/19/17 21:[address] and cervical spine CT ordered because of patient's neck pain and description of her headache, also her dizziness and nausea. Both were negative for any acute pathology. Patient feels better after something for pain given here in the emergency department. I have advised her to follow-up with her primary care provider and return with any worsening symptoms. - Vital Signs Vital signs: Temp Pulse Resp BP Pulse Ox 98.0 F 54 L 16 129/86 H 100 11/19/17 18:49 11/19/17 18:49 11/19/17 18:49 11/19/17 18:49 11/19/17 18:49 Discharge - Discharge Clinical Impression: Head injury Qualifiers: Encounter type: initial encounter Qualified Code(s): S09.90XA - Unspecified injury of head, initial encounter Condition: Stable Disposition: HOME, SELF-CARE Additional Instructions: Return immediately for any new or worsening symptoms. Follow up with primary care provider, call tomorrow to make followup appointment. Forms: Return to Work
--- NOTE | 2017-11-19 18:34 | RADIOLOGY REPORT (SQ) ---
EXAM DESCRIPTION: CT HEAD WITHOUT COMPLETED DATE/TIME: 11/19/2017 6:23 pm REASON FOR STUDY: head injury, blurred vision, neck pain COMPARISON: None. TECHNIQUE: Axial images acquired through the brain without intravenous contrast. Images reviewed wi th bone, brain and subdural windows. Images stored on PACS. All CT scanners at this facility use dose modulation, iterative reconstruction, and/or weight based d osing when appropriate to reduce radiation dose to as low as reasonably achievable (ALARA). [facility]: Dose Right [facility]: CareDose [facility]: Dose Right [facility]: Teradose 4D [facility]: DOOMORO RADIATION DOSE: CT Rad equipment meets quality standard of care and radiation dose reduction techniq ues were employed. CTDIvol: 64.6 mGy. DLP: 1163 mGy-cm. mGy. LIMITATIONS: None. FINDINGS: VENTRICLES: Normal size and contour. CEREBRUM: No masses. No hemorrhage. No midline shift. No evidence for acute infarction. Normal gra y/white matter differentiation. No areas of low density in the white matter. CEREBELLUM: No masses. No hemorrhage. No alteration of density. No evidence for acute infarction. EXTRAAXIAL SPACES: No fluid collections. No masses. ORBITS AND GLOBE: No intra- or extraconal masses. Normal contour of globe without masses. CALVARIUM: No fracture. PARANASAL SINUSES: No fluid or mucosal thickening. SOFT TISSUES: No mass or hematoma. OTHER: No other significant finding. IMPRESSION: NORMAL BRAIN CT WITHOUT CONTRAST. EVIDENCE OF ACUTE STROKE: NO. COMMENT: Quality ID # 436: Final reports with documentation of one or more dose reduction techniques (e.g., Automated exposure control, adjustment of the mA and/or kV according to patient size, use of iterative reconstruction technique) TECHNICAL DOCUMENTATION: JOB ID: [id number] [employer]- All Rights Reserved
--- NOTE | 2017-11-19 18:35 | RADIOLOGY REPORT (SQ) ---
EXAM DESCRIPTION: CT CERVICAL SPINE WITHOUT COMPLETED DATE/TIME: 11/19/2017 6:23 pm REASON FOR STUDY: head injury, blurred vision, neck pain COMPARISON: None. TECHNIQUE: Axial images acquired through the cervical spine without intravenous contrast. Images re viewed with lung, soft tissue and bone windows. Reconstructed coronal and sagittal MPR images review ed. Images stored on PACS. All CT scanners at this facility use dose modulation, iterative reconstruction, and/or weight based d osing when appropriate to reduce radiation dose to as low as reasonably achievable (ALARA). [facility]: Dose Right [facility]: CareDose [facility]: Dose Right [facility]: Teradose 4D [facility]: [employer] RADIATION DOSE: CT Rad equipment meets quality standard of care and radiation dose reduction techniq ues were employed. CTDIvol: 21.8 mGy. DLP: 444 mGy-cm. mGy. LIMITATIONS: None. FINDINGS: ALIGNMENT: Anatomic. MINERALIZATION: Normal. VERTEBRAL BODIES: No fractures or dislocation. DISCS: No significant disc disease. FACETS, LATERAL MASSES, POSTERIOR ELEMENTS: No fractures. No dislocation. No acute findings. HARDWARE: None in the spine. VISUALIZED RIBS: No fractures. LUNG APICES AND SOFT TISSUES: No significant or acute findings. OTHER: No other significant finding. IMPRESSION: NO ACUTE OR SIGNIFICANT FINDINGS IN THE CERVICAL SPINE. TECHNICAL DOCUMENTATION: JOB ID: [id number] Quality ID # [id number]: Final reports with documentation of one or more dose reduction techniques (e.g., Au tomated exposure control, adjustment of the mA and/or kV according to patient size, use of iterative reconstruction technique) 2010 [employer]- All Rights Reserved
[2017-11-19] MEDS ORDERED: HYDROCODONE/ACETAMINOPHEN 5-325 MG (6 TAB/ER DISP) PO PRN (18:41)
[2017-11-19] MEDS ORDERED: CYCLOBENZAPRINE HCL 10 MG TABLET PO ONE (18:44)
[2017-11-19 18:54] VITALS: BP 129/86
== END 2017-11-19 18:50 | disposition home or self-care (01) ==
LOC: ER 16:09
DX: S09.90XA Unspecified injury of head, initial encounter (principal); R51 Headache; R11.0 Nausea; R42 Dizziness and giddiness; W00.0XXA Fall on same level due to ice and snow, initial encounter
CPT/HCPCS: 70450; 72125; 99283

== ENCOUNTER 2017-11-24 08:02 | Emergency (ER) | payer SELFPAY ==
[2017-11-24 08:20] VITALS: BP 136/90
--- NOTE | 2017-11-24 10:00 | ER Document Report ---
ED General - General Chief Complaint: Toothache Stated Complaint: TOOTH PAIN Time Seen by Provider: 11/24/17 09:35 Mode of Arrival: Ambulatory Information source: Patient Notes: 42-year-old female presents with complaints of dental pain. Patient notes she has had the pain since yesterday morning, noted facial swelling today. She denies any fevers or chills, Patient notes she was waiting to get her tax return before she saw dentist TRAVEL OUTSIDE OF THE [place] IN LAST 30 DAYS: No - HPI Onset: Yesterday Onset/Duration: Persistent, Worse Quality of pain: Achy Severity: Mild Pain Level: 1 Associated symptoms: Other Exacerbated by: Food Relieved by: Denies Similar symptoms previously: Yes Recently seen / treated by doctor: No - Related Data Allergies/Adverse Reactions: No Known Allergies Allergy (Verified 11/24/17 08:02) Past Medical History - Social History Smoking Status: Former Smoker Cigarette use (# per day): No Chew tobacco use (# tins/day): No Smoking Education Provided: No Frequency of alcohol use: None Drug Abuse: None Family History: None Patient has suicidal ideation: No Patient has homicidal ideation: No Pulmonary Medical History: Reports: Hx Asthma - childhood, Hx Bronchitis Renal/ Medical History: Reports: Hx Kidney Stones. Denies: Hx Peritoneal Dialysis Past Surgical History: Reports: Hx Section, Hx Tubal Ligation - Immunizations Hx Diphtheria, Pertussis, Tetanus Vaccination: No Review of Systems - Review of Systems Notes: REVIEW OF SYSTEMS: CONSTITUTIONAL : Denies fever, chills, or sweats. Denies recent illness. EENT: Admits to dental pain CARDIOVASCULAR: Denies chest pain. Denies palpitations or racing or irregular heart beat. Denies ankle edema. RESPIRATORY: Denies cough, cold, or chest congestion. Denies shortness of breath, difficulty breathing, or wheezing. GASTROINTESTINAL: Denies abdominal pain or distention. Denies nausea, vomiting , or diarrhea. Denies blood in vomitus, stools, or per rectum. Denies black, tarry stools. Denies constipation. GENITOURINARY: Denies difficulty urinating, painful urination, burning, frequency, blood in urine, or discharge. FEMALE GENITOURINARY: Denies vaginal bleeding, heavy or abnormal periods, irregular periods. Denies vaginal discharge or odor. MUSCULOSKELETAL: Denies back or neck pain or stiffness. Denies joint pain or swelling. SKIN: Denies rash, lesions or sores. HEMATOLOGIC : Denies easy bruising or bleeding. LYMPHATIC: Denies swollen, enlarged glands. NEUROLOGICAL: Denies confusion or altered mental status. Denies passing out or loss of consciousness. Denies dizziness or lightheadedness. Denies headache. Denies weakness or paralysis or loss of use of either side. Denies problems with gait or speech. Denies sensory loss, numbness, or tingling. Denies seizures. PSYCHIATRIC: Denies anxiety or stress. Denies depression, suicidal ideation, or homicidal ideation. ALL OTHER SYSTEMS REVIEWED AND NEGATIVE. PHYSICAL EXAMINATION: GENERAL: Well-appearing, well-nourished and in no acute distress. HEAD: Atraumatic, normocephalic. EYES: Pupils equal round and reactive to light, extraocular movements intact, conjunctiva are normal. ENT: Teeth #[id number] are tender to palpation, there is edema around teeth [id number] no abscess is noted NECK: Normal range of motion, supple without lymphadenopathy LUNGS: Breath sounds clear to auscultation bilaterally and equal. No wheezes rales or rhonchi. HEART: Regular rate and rhythm without murmurs ABDOMEN: Soft, nontender, nondistended abdomen. No guarding, no rebound. No masses appreciated. Female : deferred Musculoskeletal: Normal range of motion, no pitting or edema. No cyanosis. NEUROLOGICAL: Cranial nerves grossly intact. Normal speech, normal gait. Normal sensory, motor exams PSYCH: Normal mood, normal affect. SKIN: Warm, Dry, normal turgor, no rashes or lesions noted. Dictation was performed using [employer] voice recognition software Physical Exam - Vital signs Vitals: Temp Pulse Resp BP Pulse Ox 99.9 F 79 18 136/90 H 100 11/24/17 08:19 11/24/17 08:19 11/24/17 08:19 11/24/17 08:19 11/24/17 08:19 Course - Re-evaluation Re-evalutation: 11/24/17 09:59 Patient's presentation is consistent with dental caries causing edema, there is no abscess noted on my examination I explained to the patient strict return precautions and presentation I would require incision and drainage patient will be started on antibiotics will be given low-cost dentistry After performing a Medical Screening Examination, I estimate there is LOW risk for a DEEP SPACE INFECTION (e.g., ANASTASIA'S ANGINA OR RETROPHARYNGEAL ABSCESS), MENINGITIS, INTRACRANIAL HEMORRHAGE, or AIRWAY COMPROMISE, thus I consider the discharge disposition reasonable. Also, there is no evidence or peritonitis, sepsis, or toxicity. I have reevaluated this patient multiple times and no significant life threatening changes are noted. The patient and I have discussed the diagnosis and risks, and we agree with discharging home with close follow-up with the understanding that symptoms and presentations can change. We also discussed returning to the Emergency Department immediately if new or worsening symptoms occur. We have discussed the symptoms which are most concerning (e.g., changing or worsening pain, trouble swallowing or breathing, neck stiffness or fever) that necessitate immediate return. - Vital Signs Vital signs: Temp Pulse Resp BP Pulse Ox 99.9 F 79 18 136/90 H 100 11/24/17 08:19 11/24/17 08:19 11/24/17 08:19 11/24/17 08:19 11/24/17 08:19 Discharge - Discharge Clinical Impression: Pain due to dental caries, Facial swelling Condition: Stable Disposition: HOME, SELF-CARE Instructions: [facility], Toothache ([facility]) Additional Instructions: Follow up with your physician tomorrow for further care or return to the ED IMMEDIATELY if symptoms worsen or new concerns occur. If you cannot afford to follow up with your primary care physician a list of low cost clinics have been provided at the end of your discharge papers as well. Prescriptions: Amoxicillin Trihydrate [Amoxil 875 mg Tablet] 1 tab PO BID #20 tablet Hydrocodone/Acetaminophen [[place] 5-325 mg Tablet] 1 tab PO BID #14 tablet
[2017-11-24] MEDS ORDERED: PENICILLIN V POTASSIUM 500 MG TABLET PO ONE (10:02)
[2017-11-24] MEDS ORDERED: HYDROCODONE/ACETAMINOPHEN 5-325 MG TABLET PO ONE (10:02)
== END 2017-11-24 10:10 | disposition home or self-care (01) ==
LOC: ER 08:02
DX: K02.9 Dental caries, unspecified (principal); R22.0 Localized swelling, mass and lump, head; K08.89 Other specified disorders of teeth and supporting structures; Z87.891 Personal history of nicotine dependence
CPT/HCPCS: 99282

== ENCOUNTER → 2018-01-09 | Outpatient (CLI) | payer OTHER ==
[2018-01-09 11:34] LABS: IRON(TIBC) 16.3 ug/dL (37-170)
[2018-01-09 12:11] LABS: FERRITIN 6.91 ng/mL (6.2-137.0)
== END ==
LOC: CCC 10:09
DX: D50.9 Iron deficiency anemia, unspecified (principal)
CPT/HCPCS: 36415; 82728; 83036; 83540; 83550

== ENCOUNTER 2018-01-17 14:51 | Emergency (ER) | payer SELFPAY ==
[2018-01-17] MEDS ORDERED: KETOROLAC TROMETHAMINE INJ/PF 30 MG/1 ML SDV IM ONE (15:49)
[2018-01-17] MEDS ORDERED: LIDOCAINE 2% VISCOUS SOLN 20 ML UDCUP PO ONE (15:49)
--- NOTE | 2018-01-17 15:52 | ER Document Report ---
HPI - HPI Pain Level: 4 Notes: Patient is a 42-year-old female with no significant past medical history who presents to the ED complaining of lower dental pain bilaterally x weeks. Patient states that she does not have the money to get her teeth pulled. She is still eating and drinking without difficulties. She is urinating normally and having normal bowel movements. The pain does not radiate otherwise. Patient has not noticed any other obvious abscess or purulent discharge. Denies any drug allergies. Denies any headache, fever, head injury, neck pain, hoarseness, drooling, URI, sore throat, chest pain, palpitations, syncope, cough , shortness of breath, wheeze, dyspnea, abdominal pain, nausea/vomiting/diarrhea , urinary retention, dysuria, hematuria, or rash. - ROS Systems Reviewed and Negative: Yes All other systems reviewed and negative Past Medical History - Social History Smoking Status: Never Smoker Chew tobacco use (# tins/day): No Frequency of alcohol use: None Drug Abuse: None Family History: None Patient has suicidal ideation: No Patient has homicidal ideation: No Pulmonary Medical History: Reports: Hx Asthma - childhood, Hx Bronchitis Renal/ Medical History: Reports: Hx Kidney Stones. Denies: Hx Peritoneal Dialysis Past Surgical History: Reports: Hx Section, Hx Tubal Ligation - Immunizations Hx Diphtheria, Pertussis, Tetanus Vaccination: No Vertical Provider Document - CONSTITUTIONAL Agree With Documented VS: Yes Notes: PHYSICAL EXAMINATION: GENERAL: Well-appearing, well-nourished and in no acute distress. HEAD: Atraumatic, normocephalic. EYES: Pupils equal round and reactive to light, extraocular movements intact, sclera anicteric, conjunctiva are normal. ENT: EAC clear b/l. TM's intact b/l without erythema, fluid, or perforation. Nares patent and without discharge. oropharynx clear without exudates. No tonsilar hypertrophy or erythema. Moist mucous membranes. No sinus tenderness. Uvula midline. No palatine shift. No tongue protrusion. No respiratory compromise. Mouth: Poor dentition. + mild decay and mild gingivitis. No obvious abscess or discharge noted. No facial swelling. + tenderness to tooth #18, 31. NECK: Normal range of motion, supple without lymphadenopathy. No rigidity/ meningismus. LUNGS: Breath sounds clear to auscultation bilaterally and equal. No wheezes rales or rhonchi. HEART: Regular rate and rhythm without murmurs, rubs, gallops. NEUROLOGICAL: Cranial nerves grossly intact. Normal speech, normal gait. Normal sensory, motor exams PSYCH: Normal mood, normal affect. SKIN: Warm, Dry, normal turgor, no rashes or lesions noted. - INFECTION CONTROL TRAVEL OUTSIDE OF THE [place] IN LAST 30 DAYS: No Course - Re-evaluation Re-evalutation: 01/17/18 15:50 Patient is an afebrile, well-hydrated, 42-year-old female who presents to the ED with dental pain to her lower jaw primarily teeth #18 and 31. Vitals are acceptable. PE is otherwise unremarkable. No labs or imaging warranted at this time based on H&P. Patient is able to tolerate p.o. without any difficulties. Patient was given Toradol as well as viscous lidocaine. Low suspicion for any meningitis, sepsis, peritonsillar/pharyngeal abscess, respiratory compromise, Sanjiv's, temporal arteritis, or other emergent systemic condition at this time. Patient is aware this condition can change from initial presentation and she needs to monitor symptoms closely. I will send her home with a prescription for naproxen as well as penicillin. Conservative measures otherwise for symptoms. Call to schedule an appointment with a dentist for further evaluation and management. Recheck with your PCM this week as well. Return to the ED with any worsening/concerning symptoms otherwise as reviewed in discharge. Patient is in agreement. Discharge - Discharge Clinical Impression: Pain, dental Condition: Stable Disposition: HOME, SELF-CARE Instructions: Toothache ([facility]), Penicillin V K ([facility]) Additional Instructions: Bow and floss twice daily Maintain fluid intake Take antibiotics as directed Mouthwash, salt water gargles, peroxide rinse as needed Tylenol/ibuprofen as needed Recheck with PCM this week Call today/tomorrow and schedule an appointment with your dentist for further evaluation Return to the ED with any worsening symptoms and/or development of fever, headache, facial swelling, swelling of lips/tongue/throat, trouble swallowing, drooling, hoarseness, neck pain/stiffness, chest pain, palpitations, syncope, shortness of breath, trouble breathing, abdominal pain, n/v/d, numbness/tingling , or other worsening symptoms that are concerning to you. Prescriptions: Naproxen 500 mg PO BID PRN #30 tablet PRN Reason: Penicillin V Potassium [Penicillin Vk 250 mg Tablet] 500 mg PO BID #40 tablet Forms: Elevated Blood Pressure Referrals: [facility] [Provider Group] - Follow up in 1 week
== END 2018-01-17 16:14 | disposition home or self-care (01) ==
LOC: ER 14:51
DX: K08.9 Disorder of teeth and supporting structures, unspecified (principal); Z87.442 Personal history of urinary calculi; Z98.51 Tubal ligation status
CPT/HCPCS: 99282; 96372; J3490; J1885

== ENCOUNTER 2018-03-21 15:27 | Emergency (ER) | payer SELFPAY ==
[2018-03-21] MEDS ORDERED: IBUPROFEN 800 MG TABLET PO ONE (16:27)
[2018-03-21] MEDS ORDERED: LIDOCAINE 2% VISCOUS SOLN 20 ML UDCUP PO ONE (16:27)
[2018-03-21] MEDS ORDERED: PENICILLIN V POTASSIUM 500 MG TABLET PO ONE (16:27)
--- NOTE | 2018-03-21 16:33 | ER Document Report ---
ED Oral Problem - General Chief Complaint: Toothache Stated Complaint: MOUTH PAIN Time Seen by Provider: 03/21/18 16:15 Mode of Arrival: Ambulatory Information source: Patient Notes: 42-year-old female presented to ED for complaint of bilateral lower jaw pain. She states she is seen previously by the [facility] and has been seen here in the emergency room but has not been to a dentist. She states that the care in [facility] was supposed to make a referral to the care in [facility] [place] but have not done that yet. She states she had new pain that started today. She states she has not called the care in [facility] or the care in [facility] recently. TRAVEL OUTSIDE OF THE [place]. IN LAST 30 DAYS: No - HPI Patient complains to provider of: Toothache Onset: This morning Onset: Gradual Quality of pain: Sharp, Throbbing Severity: Severe Pain Level: 5 Associated symptoms: Toothache Worsened by: Nothing Relieved by: Nothing Similar symptoms previously: Yes Recently seen / treated by doctor/dentist: No - Related Data Allergies/Adverse Reactions: No Known Allergies Allergy (Verified 03/21/18 15:28) Past Medical History - General Information source: Patient - Social History Smoking Status: Never Smoker Cigarette use (# per day): No Chew tobacco use (# tins/day): No Smoking Education Provided: No Frequency of alcohol use: None Drug Abuse: None Lives with: Family Family History: None Patient has suicidal ideation: No Patient has homicidal ideation: No - Past Medical History Cardiac Medical History: Reports: None Pulmonary Medical History: Reports: Hx Asthma - childhood, Hx Bronchitis EENT Medical History: Reports: None Neurological Medical History: Reports: None Endocrine Medical History: Reports: None Renal/ Medical History: Reports: Hx Kidney Stones Malignancy Medical History: Reports: None GI Medical History: Reports: None Musculoskeltal Medical History: Reports None Skin Medical History: Reports None Psychiatric Medical History: Reports: None Traumatic Medical History: Reports: None Infectious Medical History: Reports: None Past Surgical History: Reports: Hx Section, Hx Tubal Ligation - Immunizations Hx Diphtheria, Pertussis, Tetanus Vaccination: No Review of Systems - Review of Systems Constitutional: No symptoms reported EENT: Dental problem Cardiovascular: No symptoms reported Respiratory: No symptoms reported Gastrointestinal: No symptoms reported Genitourinary: No symptoms reported Female Genitourinary: No symptoms reported Musculoskeletal: No symptoms reported Skin: No symptoms reported Hematologic/Lymphatic: No symptoms reported Neurological/Psychological: No symptoms reported -: Yes All other systems reviewed and negative Physical Exam - Vital signs Vitals: Temp Pulse Resp BP Pulse Ox 99.5 F 77 20 144/89 H 98 03/21/18 15:37 03/21/18 15:37 03/21/18 15:37 03/21/18 15:37 03/21/18 15:37 Interpretation: Normal - General General appearance: Appears well, Alert - HEENT Head: Normocephalic, Atraumatic Eyes: Normal Pupils: PERRL Ears: Normal External canal: Normal Tympanic membrane: Normal Sinus: Normal Nasal: Normal Mouth/Lips: Caries Mucous membranes: Normal Teeth diagram: 1 - Very minimal erythema and swelling to the gums. No acute cavities no acute broken teeth noted no swelling to the jaw no swelling to the face. Pharynx: Normal Neck: Normal - Respiratory Respiratory status: No respiratory distress Chest status: Nontender Breath sounds: Normal Chest palpation: Normal - Cardiovascular Rhythm: Regular Heart sounds: Normal auscultation Murmur: No - Abdominal Inspection: Normal Distension: No distension Bowel sounds: Normal Tenderness: Nontender Organomegaly: No organomegaly - Back Back: Normal, Nontender - Extremities General upper extremity: Normal inspection, Nontender, Normal color, Normal ROM , Normal temperature General lower extremity: Normal inspection, Nontender, Normal color, Normal ROM , Normal temperature, Normal weight bearing. No: Criss's sign - Neurological Neuro grossly intact: Yes Cognition: Normal Orientation: AAOx4 Broaddus Coma Scale Eye Opening: Spontaneous Broaddus Coma Scale Verbal: Oriented Broaddus Coma Scale Motor: Obeys Commands Yoly Coma Scale Total: 15 Speech: Normal Motor strength normal: LUE, RUE, LLE, RLE Sensory: Normal - Psychological Associated symptoms: Normal affect, Normal mood - Skin Skin Temperature: Warm Skin Moisture: Dry Skin Color: Normal Course - Re-evaluation Re-evalutation: 03/21/18 21:48 Patient was treated with Penicillin VK, ibuprofen was offered and refused and patient was given viscous lidocaine for her pain. Patient became very angry when she did not get narcotics. She states last time she came she got narcotics. It was explained to patient that we do not treat chronic dental pain with narcotics and as she stated she is [facility] and has not been able to get in for her dental pain this is a chronic problem. - Vital Signs Vital signs: Temp Pulse Resp BP Pulse Ox 98.7 F 69 18 128/81 H 100 03/21/18 16:57 03/21/18 16:57 03/21/18 16:57 03/21/18 16:57 03/21/18 16:57 Discharge - Discharge Clinical Impression: Pain due to dental caries Condition: Stable Disposition: HOME, SELF-CARE Additional Instructions: TOOTHACHE: Your pain is due to dental decay. The tooth must be repaired in order for you to feel better. You will, therefore, be referred to a dentist. We do not have dentists on the staff at [facility]. Severe swelling or drainage around a tooth usually means a dental abscess. This also requires evaluation and treatment by the dentist, but antibiotics may be prescribed while awaiting dental treatment. You should be rechecked immediately if you develop major swelling of the face, increasing pain, a lump in the jaw or gums, headache, difficulty swallowing, or fever. PENICILLIN V K: You have been given a prescription for Penicillin VK. Your physician has determined that this is the best antibiotic for your condition. Pen VK can be taken with meals, however more of the antibiotic gets into the bloodstream if it's taken on an empty stomach. Penicillin usually has no side effects. However, allergy to penicillins is common. If you have had an allergic reaction to any drug of the penicillin family, you should never take any other penicillin. Notify your doctor at once if you develop hives, itching, swelling, faintness, or shortness of breath. You will treated with viscous lidocaine in the emergency room for your dental pain. This is actual lidocaine that numbs her mouth. It will also numb your tongue so please be careful. Ibuprofen Ibuprofen is an excellent, safe drug for pain control. In addition, it has potent antiinflammatory effects which are beneficial, especially in the treatment of injuries, arthritis, or tendonitis. It's best to take ibuprofen with food. Persons with ulcer disease or allergy to aspirin should notify their physician of this before taking ibuprofen. Take the medication exactly as prescribed. Don't take additional doses unless instructed to do so by your doctor. If you develop wheezing, shortness of breath, hives, faintness, stomach pain, vomiting, or dark black stools, return for re-evaluation at once. FOLLOW-UP CARE: You have been referred for follow-up care to the dentists listed below. Call the dentists office for an appointment as you were instructed or within the next two days. If you experience worsening or a significant change in your symptoms, notify the physician immediately or return to the Emergency Department at any time for re-evaluation. [facility] [address] [place], [place] [facility] [address] [place] [address] [facility] [address] [facility] [address] [facility] ([facility]) [facility] [place] [facility] [address] [facility] [email or web address] [address] [place] [address] Monday- 8:00am to 5:00 pm Will see patients from other [facility]. Charges based on income and family size and accepts Medicare, Medicaid, and Insurances Will pull molars [facility] [address] Hours of Operation 8:00 am - 4:30 pm weekdays The following dental offices accept Medicaid: [facility] Dr. Levine Dr. Jacobs Dr. Moreno Dr. Cano Albert Yang Lutsavage, and [facility] oral [facility] Dr. Cheng ([place]) Dr. Reyes ([place]) [facility] Drs. Figueredo and Yogesh ([place]) Dr. Mayo ([place]) [facility] Dr. Manriquez ([place]) Drs. Loera and ([place]) Medicaid Care Line Prescriptions: Penicillin V Potassium [Penicillin Vk 500 mg Tablet] 500 mg PO BID #20 tablet Forms: Elevated Blood Pressure, Smoking Cessation Education Referrals: [facility] [Provider Group] - Follow up as needed [facility] [Provider Group] - Follow up as needed
[2018-03-21 17:08] VITALS: BP 128/81
== END 2018-03-21 17:08 | disposition home or self-care (01) ==
LOC: ER 15:27
DX: K02.9 Dental caries, unspecified (principal); K13.79 Other lesions of oral mucosa; Z98.51 Tubal ligation status
CPT/HCPCS: 99282; J3490

== ENCOUNTER 2018-07-09 14:44 | Emergency (ER) | payer SELFPAY ==
[2018-07-09 14:59] VITALS: BP 136/94
[2018-07-09 15:18] LABS: APPEARANCE,URINE CLEAR; BILIRUBIN,URINE NEGATIVE (NEGATIVE); COLOR,URINE YELLOW; GLUCOSE, URINE NEGATIVE (NEGATIVE); KETONES,URINE NEGATIVE (NEGATIVE); LEUKOCYTE ESTERASE,URINE TRACE (NEGATIVE); NITRITE,URINE NEGATIVE (NEGATIVE); PROTEIN,URINE NEGATIVE (NEGATIVE); URINE SPECIFIC GRAVITY 1.005; UROBILINOGEN,URINE NEGATIVE mg/dL (<2.0)
[2018-07-09] MEDS ORDERED: CLINDAMYCIN 600 MG/D5W RTU 600 MG/50 ML RTUPB IV ONE (16:03)
[2018-07-09 16:27] LABS: ABSOLUTE BASOPHILS # (AUTO) 0.1 10^3/uL (0.0-0.2); ABSOLUTE EOSINOPHILS # (AUTO) 0.1 10^3/uL (0.0-0.6); ABSOLUTE LYMPHOCYTES (AUTO) 2.3 10^3/uL (0.5-4.7); ABSOLUTE MONOCYTES (AUTO) 0.8 10^3/uL (0.1-1.4); ABSOLUTE NEUT (AUTO) 5.8 10^3/uL (1.7-8.2); BASOPHILS % (AUTO) 1.1 % (0-2); EOSINOPHILS % (AUTO) 1.2 % (0-6); HEMATOCRIT 32.9 % (36.0-47.0); HEMOGLOBIN 10.4 g/dL (12.0-15.5); LYMPHOCYTES % (AUTO) 25.3 % (13-45); MEAN CORPUSCULAR HEMOGLOBIN 22.4 pg (27.0-33.4); MEAN CORPUSCULAR HGB CONC 31.5 g/dL (32.0-36.0); MEAN CORPUSCULAR VOLUME 71 fl (80-97); MONOCYTES % (AUTO) 8.5 % (3-13); PLATELET COUNT 350 10^3/uL (150-450); RED BLOOD COUNT 4.62 10^6/uL (3.72-5.28); RED CELL DISTRIBUTION WIDTH 18.4 % (11.5-14.0); SEGMENTED NEUTROPHILS % (AUTO) 63.9 % (42-78); TOTAL CELLS COUNTED % (AUTO) 100 %; WHITE BLOOD COUNT 9.1 10^3/uL (4.0-10.5)
--- NOTE | 2018-07-09 16:38 | RADIOLOGY REPORT (SQ) ---
EXAM DESCRIPTION: CT FACIAL AREA WITH COMPLETED DATE/TIME: 07/09/2018 4:26 pm REASON FOR STUDY: left facial swelling abscess COMPARISON: None. TECHNIQUE: Post contrast images through the facial bones and orbits windowed for bone and soft tissu e. Additional coronal and sagittal reconstructed images reviewed. All images stored on PACS. All CT scanners at this facility use dose modulation, iterative reconstruction, and/or weight based d osing when appropriate to reduce radiation dose to as low as reasonably achievable (ALARA). [facility]: Dose Right [facility]: CareDose [facility]: Dose Right [facility]: Teradose 4D [facility]: [email or web address] CONTRAST TYPE AND DOSE: contrast/concentration: Isovue 350.00 mg/ml; Total Contrast Delivered: 75.0 ml; Total Saline Delivered: 49.0 ml RENAL FUNCTION: None required. The patient is less than 50 years old. RADIATION DOSE: CT Rad equipment meets quality standard of care and radiation dose reduction techniq ues were employed. CTDIvol: 30.4 mGy. DLP: 619 mGy-cm. . LIMITATIONS: None. FINDINGS: Soft tissue swelling is seen over the left mandibular body region, left lower cheek with s ubcutaneous edema and skin thickening. No well-circumscribed soft tissue abscess. There are adjacen t left premolar and 1st molar teeth with advanced dental caries and periapical tooth root abscess. T his likely represents soft tissue infection from odontogenic source. FACIAL BONES: No fracture or bone lesion. ORBITS: Intact. No fracture. Symmetric intact globes and retroorbital soft tissues. PARANASAL SINUSES: Clear. No significant mucosal thickening, mass or fluid. No nasal polyps. Maxilla ry sinus outlets are patent. SOFT TISSUES: As above INFERIOR BRAIN: Limited view. No acute findings. OTHER: No other significant finding. IMPRESSION: Advanced dental caries along left lower premolar and 1st molar teeth with periapical too th root abscess. Adjacent facial cellulitis without discrete abscess TECHNICAL DOCUMENTATION: JOB ID: [id number] Quality ID # [id number]: Final reports with documentation of one or more dose reduction techniques (e.g., Au tomated exposure control, adjustment of the mA and/or kV according to patient size, use of iterative reconstruction technique) 2010 [employer]- All Rights Reserved [place] location - IP/workstation name: [facility]
[2018-07-09] MEDS ORDERED: BUPIVACAINE HCL 0.75% INJ/PF (7.5 MG/1 ML) 10 ML SDV INJ ONE (16:59)
[2018-07-09] MEDS ORDERED: LIDOCAINE 1% INJ (10 MG/ML) 10 ML MDV INJ ONE (17:02)
[2018-07-09 17:27] LABS: ANION GAP 7 (5-19); BLOOD UREA NITROGEN 7 mg/dL (7-20); CALCIUM 8.8 mg/dL (8.4-10.2); CARBON DIOXIDE 26 mmol/L (22-30); CHLORIDE 104 mmol/L (98-107); GLUCOSE 78 mg/dL (75-110); POTASSIUM 4.2 mmol/L (3.6-5.0); SODIUM 136.7 mmol/L (137-145)
--- NOTE | 2018-07-09 17:33 | ER Document Report ---
ED General - General Chief Complaint: Facial Swelling Stated Complaint: MOUTH AND URINE PAIN Time Seen by Provider: 07/09/18 15:54 Mode of Arrival: Ambulatory Information source: Patient Notes: Patient is a 47-year-old female comes emergency room complaining of left-sided facial pain. She states it has been going on for approximately 2-3 days gotten worse over the last 24 hours. Patient states that she has a history of bad teeth and this is a 2 that has not been infected before. She denies any fevers she is still swallowing her secretions but she is here for pain control. Also complains of some dysuria as well. Her last menstrual cycle was on the fourth of this month and she does not smoke and she works at a restaurant. He denies any other medical problems. TRAVEL OUTSIDE OF THE [place] IN LAST 30 DAYS: No - HPI Onset: Other - Worse last 2 days Onset/Duration: Gradual, Persistent, Worse Quality of pain: Sharp, Throbbing Severity: Moderate Pain Level: 3 Associated symptoms: denies: Drooling Exacerbated by: Deep breathing, Other - Hot and cold sensations Relieved by: Denies Similar symptoms previously: Yes Recently seen / treated by doctor: No - Related Data Allergies/Adverse Reactions: No Known Allergies Allergy (Verified 07/09/18 14:45) Past Medical History - General Information source: Patient, Relative - Social History Smoking Status: Never Smoker Cigarette use (# per day): No Chew tobacco use (# tins/day): No Smoking Education Provided: No Frequency of alcohol use: None Drug Abuse: None Lives with: Family Family History: None, Reviewed & Not Pertinent Patient has suicidal ideation: No Patient has homicidal ideation: No Pulmonary Medical History: Reports: Hx Asthma - childhood, Hx Bronchitis Renal/ Medical History: Reports: Hx Kidney Stones. Denies: Hx Peritoneal Dialysis Past Surgical History: Reports: Hx Section, Hx Tubal Ligation - Immunizations Hx Diphtheria, Pertussis, Tetanus Vaccination: No Review of Systems - Review of Systems Constitutional: No symptoms reported. denies: Chills, Fever, Malaise, Weakness EENT: Mouth pain Cardiovascular: No symptoms reported Respiratory: No symptoms reported Gastrointestinal: No symptoms reported Genitourinary: No symptoms reported Female Genitourinary: No symptoms reported Musculoskeletal: No symptoms reported Skin: No symptoms reported Hematologic/Lymphatic: No symptoms reported Neurological/Psychological: No symptoms reported Physical Exam - Vital signs Vitals: Temp Pulse Resp BP Pulse Ox 98.3 F 68 16 136/94 H 100 07/09/18 14:58 07/09/18 14:58 07/09/18 14:58 07/09/18 14:58 07/09/18 14:58 Interpretation: Hypertensive - Notes Notes: Very uncomfortable appearing 42-year-old female - General General appearance: Alert - HEENT Head: Normocephalic Eyes: Normal Conjunctiva: Normal Tympanic membrane: Normal Sinus: Maxillary Nasal: Normal Mouth/Lips: Dental fracture, Other - Examination patient's oral cavity shows there is a multiple dental caries. Primary concern today is on the left lower at the first molar anteriorly appears to be some swelling around the tooth gumline no exudate noted at this time portion of the tooth is broken off and decayed next molar is also very sensitive to percussion. The gumline is very erythematous and difficult to tell which tooth may be involved. She also has external swelling on the lower mandible on the left side and some extension into the left maxillary sinus area and extending over to the zygomatic process. Very tender to palpate. Mucous membranes: Moist Pharynx: Normal Neck: Normal Course - Re-evaluation Re-evalutation: 07/09/18 17:45 I offered patient a dental block and she accepted. Her CT showed that she has advanced dental caries along the left lower premolar and first molar teeth with periapical tooth root abscess. Adjacent facial cellulitis without discrete abscess. I have informed patient that this tooth needs to either be saved with a root canal or needs to be extracted. She states she cannot afford to have a tooth root canal done so she was given a dental sheet with the [facility] that does free extractions and she will follow-up with him. I have also informed her that amoxicillin will not handle this dental problem with the root being infected so I have given her a good Rx card and informed her to go to [facility] where the cost would be approximately 38 hours. Patient had had a complained about dysuria her urine came back clean I discussed more with her about the symptoms and she stated that she had a slight discharge. I offered to do a pelvic exam and patient refused. She will return to ER if she has continues to have a problem. 07/09/18 17:48 Procedure note from a dental block I used 1 mL of 0.5% bupivacaine without epi and 1% lidocaine 1 mL without epi I then used a 27-gauge 5/8 inch needle and a 3 mL syringe and I injected the amount into the crevice of the gum and tooth line just the head her anterior to the infected tooth. After injecting within less than a minute patient was receiving 100% relief of her discomfort and pain because of the numbing effect. She was very happy with the outcome of this dental block. - Vital Signs Vital signs: Temp Pulse Resp BP Pulse Ox 98.3 F 68 16 136/94 H 100 07/09/18 14:58 07/09/18 14:58 07/09/18 14:58 07/09/18 14:58 07/09/18 14:58 - Laboratory Result Diagrams: 07/09/18 16:13 07/09/18 16:45 Laboratory results interpreted by me: 07/09/18 07/09/18 07/09/18 14:50 16:13 16:45 Hgb 10.4 L Hct 32.9 L MCV 71 L MCH 22.4 L MCHC 31.5 L RDW 18.4 H Sodium 136.7 L Creatinine 0.46 L Ur Leukocyte Esterase TRACE H Discharge - Discharge Clinical Impression: Dental abscess Condition: Stable Disposition: HOME, SELF-CARE Instructions: Abscess ([facility]), Oral Narcotic Medication ([facility]), Dental Infection or Abscess ([facility]) Additional Instructions: Home and rest. Medication as prescribed. As I indicated to you with the use of the good Rx card the cheapest place for you to go is [facility] [employer] for free and use the card and should be around $38 for that antibiotic. I am also writing you for one Diflucan pill to help you not get a yeast infection while taking the medication. And the pain medication. I given you the number and contact paper of dental practices that you can have the tooth extracted please contact them first thing tomorrow. Should you have any concerns or problems if you are pain with urination gets worse or the discharge appears to be getting worse return to ER for recheck. Prescriptions: Clindamycin HCl 300 mg PO QID 10 Days #40 capsule Fluconazole [Diflucan] 150 mg PO ONCE PRN #1 tablet PRN Reason: Oxycodone HCl/Acetaminophen [Percocet 5-325 mg Tablet] 1 tab PO Q4H PRN #12 tablet PRN Reason:
== END 2018-07-09 18:04 | disposition home or self-care (01) ==
LOC: ER 14:44
DX: K04.7 Periapical abscess without sinus (principal); R60.9 Edema, unspecified; Z87.442 Personal history of urinary calculi; Z98.51 Tubal ligation status
CPT/HCPCS: 99284; 96365; 36415; 85025; 81025; 80048; 81001; 70487; 64400; J3490

== ENCOUNTER 2018-08-30 14:15 | Emergency (ER) | payer SELFPAY ==
[2018-08-30 14:26] VITALS: BP 130/86
[2018-08-30] MEDS ORDERED: LIDOCAINE 2% VISCOUS SOLN 20 ML UDCUP PO ONE (15:53)
--- NOTE | 2018-08-30 15:57 | ER Document Report ---
HPI - HPI Time Seen by Provider: 08/30/18 15:47 Pain Level: 5 Notes: Patient is a 42-year-old female who presents to the ED complaining of left lower dental pain #20 x2-3 days, but overall x 1 year, with swelling that started x1 day. She has not noticed any obvious abscess or purulent discharge. Patient states that she is still able to eat and drink, but does have a decreased p.o. intake due to the pain. She has tried some [id number] meds with minimal relief. Pt states she has had symptoms like this previously and has needed antibiotics. She has not scheduled an appointment with a dentist. No other concerns or complaints. Denies any headache, fever, head injury, neck pain, hoarseness, drooling, URI, sore throat, chest pain, palpitations, syncope, cough, shortness of breath, wheeze, dyspnea, abdominal pain, nausea/vomiting/diarrhea, urinary retention, dysuria, hematuria, or rash. - ROS Systems Reviewed and Negative: Yes All other systems reviewed and negative Past Medical History - Social History Smoking Status: Unknown if Ever Smoked Family History: None, Reviewed & Not Pertinent Pulmonary Medical History: Reports: Hx Asthma - childhood, Hx Bronchitis Renal/ Medical History: Reports: Hx Kidney Stones. Denies: Hx Peritoneal Dialysis Past Surgical History: Reports: Hx Section, Hx Tubal Ligation - Immunizations Hx Diphtheria, Pertussis, Tetanus Vaccination: No Vertical Provider Document - CONSTITUTIONAL Agree With Documented VS: Yes Notes: PHYSICAL EXAMINATION: GENERAL: Well-appearing, well-nourished and in no acute distress. HEAD: Atraumatic, normocephalic. EYES: Pupils equal round and reactive to light, extraocular movements intact, sclera anicteric, conjunctiva are normal. ENT: EAC clear b/l. TM's intact b/l without erythema, fluid, or perforation. Nares patent and without discharge. oropharynx clear without exudates. No tonsilar hypertrophy or erythema. Moist mucous membranes. No sinus tenderness. Uvula midline. No palatine shift. No tongue protrusion. No respiratory compromise. Mouth: Poor dentition. + severe decay and mild gingivitis. No obvious abscess or discharge noted. No facial swelling. + tenderness to tooth #20. NECK: Normal range of motion, supple without lymphadenopathy. No rigidity/ meningismus. LUNGS: Breath sounds clear to auscultation bilaterally and equal. No wheezes rales or rhonchi. HEART: Regular rate and rhythm without murmurs, rubs, gallops. NEUROLOGICAL: Cranial nerves grossly intact. Normal speech, normal gait. Normal sensory, motor exams PSYCH: Normal mood, normal affect. SKIN: Warm, Dry, normal turgor, no rashes or lesions noted. - INFECTION CONTROL TRAVEL OUTSIDE OF THE [place] IN LAST 30 DAYS: No Course - Re-evaluation Re-evalutation: 08/30/18 15:55 Patient is an afebrile, well-hydrated, 42-year-old female who presents to the ED with dental pain, suspect nerve root etiology versus infection. Vitals are acceptable. PE is otherwise unremarkable. No I&D, labs, or imaging warranted at this time based on H&P. Viscous lidocaine dispensed today. I will send her home with a prescription for penicillin. Low suspicion for any meningitis, sepsis, peritonsillar/pharyngeal abscess, respiratory compromise, Sanjiv's, temporal arteritis, or other emergent systemic condition at this time. Patient is aware this condition can change from initial presentation and she needs to monitor symptoms closely. Conservative measures otherwise for symptoms. Call to schedule an appointment with a dentist for further evaluation and management. Recheck with your PCM this week as well. Return to the ED with any worsening/concerning symptoms otherwise as reviewed in discharge. Patient is in agreement. - Vital Signs Vital signs: Temp Pulse Resp BP Pulse Ox 98.8 F 65 18 130/86 H 100 08/30/18 14:25 08/30/18 14:25 08/30/18 14:25 08/30/18 14:25 08/30/18 14:25 Discharge - Discharge Clinical Impression: Pain, dental Condition: Stable Disposition: HOME, SELF-CARE Instructions: Toothache (OM), Penicillin V K ([facility]), Dentist Additional Instructions: [place] and floss twice daily Maintain fluid intake Take antibiotics as directed Mouthwash, salt water gargles, peroxide rinse as needed Tylenol/ibuprofen as needed Recheck with PCM this week Call today/tomorrow and schedule an appointment with your dentist for further evaluation Return to the ED with any worsening symptoms and/or development of fever, headache, facial swelling, swelling of lips/tongue/throat, trouble swallowing, drooling, hoarseness, neck pain/stiffness, chest pain, palpitations, syncope, shortness of breath, trouble breathing, abdominal pain, n/v/d, numbness/tingling , or other worsening symptoms that are concerning to you. Prescriptions: Naproxen 500 mg PO BID #20 tablet Penicillin V Potassium [Penicillin Vk 250 mg Tablet] 500 mg PO BID #40 tablet Forms: Elevated Blood Pressure Referrals: [facility] [Provider Group] - Follow up in 3-5 days
== END 2018-08-30 16:26 | disposition home or self-care (01) ==
LOC: ER 14:15
DX: K08.9 Disorder of teeth and supporting structures, unspecified (principal); Z87.442 Personal history of urinary calculi
CPT/HCPCS: 99283; J3490

== ENCOUNTER → 2018-09-25 | Outpatient (CLI) | payer OTHER ==
[2018-09-26 04:37] LABS: HEPATITIS A AB IGM Negative (Negative); HEPATITIS B CORE AB IGM Negative (Negative); HEPATITS B SURFACE ANTIGEN Negative (Negative)
[2018-09-26 09:42] LABS: HEPATITIS C VIRUS ANTIBODY <0.1 s/co ratio (0.0-0.9)
== END ==
LOC: CCC 10:26
DX: B18.2 Chronic viral hepatitis C (principal)
CPT/HCPCS: 36415; 80074

== ENCOUNTER → 2018-09-27 | Outpatient (CLI) | payer OTHER ==
[2018-09-27 13:32] LABS: ABSOLUTE EOSINOPHILS # (AUTO) 0.1 10^3/uL (0.0-0.6); ABSOLUTE LYMPHOCYTES (AUTO) 1.5 10^3/uL (0.5-4.7); ABSOLUTE MONOCYTES (AUTO) 0.4 10^3/uL (0.1-1.4); ABSOLUTE NEUT (AUTO) 2.5 10^3/uL (1.7-8.2); BASOPHILS % (AUTO) 0.8 % (0-2); EOSINOPHILS % (AUTO) 2.2 % (0-6); HEMATOCRIT 31.3 % (36.0-47.0); LYMPHOCYTES % (AUTO) 33.5 % (13-45); MEAN CORPUSCULAR HEMOGLOBIN 22.6 pg (27.0-33.4); MEAN CORPUSCULAR HGB CONC 31.9 g/dL (32.0-36.0); MEAN CORPUSCULAR VOLUME 71 fl (80-97); MONOCYTES % (AUTO) 9.2 % (3-13); PLATELET COUNT 315 10^3/uL (150-450); RED BLOOD COUNT 4.41 10^6/uL (3.72-5.28); RED CELL DISTRIBUTION WIDTH 18.3 % (11.5-14.0); SEGMENTED NEUTROPHILS % (AUTO) 54.3 % (42-78); TOTAL CELLS COUNTED % (AUTO) 100 %; WHITE BLOOD COUNT 4.6 10^3/uL (4.0-10.5)
[2018-09-27 13:52] LABS: ALANINE AMINOTRANSFERASE 19 U/L (9-52); ALBUMIN 3.9 g/dL (3.5-5.0); ALKALINE PHOSPHATASE 60 U/L (38-126); ANION GAP 9 (5-19); ASPARTATE AMINO TRANSFERASE 27 U/L (14-36); BILIRUBIN,DIRECT 0.2 mg/dL (0.0-0.4); BILIRUBIN,TOTAL 0.3 mg/dL (0.2-1.3); BLOOD UREA NITROGEN 15 mg/dL (7-20); CARBON DIOXIDE 27 mmol/L (22-30); CHLORIDE 105 mmol/L (98-107); CHOLESTEROL 177.13 mg/dL (0-200); GLUCOSE 88 mg/dL (75-110); IRON(TIBC) 13.2 ug/dL (37-170); POTASSIUM 4.2 mmol/L (3.6-5.0); SODIUM 141.1 mmol/L (137-145); TOTAL PROTEIN 7.5 g/dL (6.3-8.2); TRIGLYCERIDES 58 mg/dL (<150)
[2018-09-27 14:12] LABS: DIRECT LDL 125 mg/dL (<100)
[2018-09-27 14:36] LABS: FERRITIN 4.88 ng/mL (6.2-137.0)
[2018-09-27 15:06] LABS: FOLATE 7.37 ng/mL (>2.76)
== END ==
LOC: CCC 12:28
DX: Z13.9 Encounter for screening, unspecified (principal)
CPT/HCPCS: 36415; 80053; 80061; 82607; 82728; 82746; 83036; 83540; 83550; 84443; 85025

== ENCOUNTER 2019-11-04 11:20 | Emergency (ER) | payer BC, OTHER ==
[2019-11-04 11:29] VITALS: BP 141/81
--- NOTE | 2019-11-04 11:31 | ER Document Report ---
HPI - HPI Time Seen by Provider: 11/04/19 11:30 Pain Level: Denies Notes: Patient is a 44-year-old female who presents complaining of a rash that is pruritic and showed up to the right side of her neck, abdomen, bilateral forearms, her trunk after over the course of 3 days. Patient states that she did take a medicine that she has not had in a while prior to the start of symptoms, and has not taken it since. Patient states that she is unaware of any other new exposure to chemicals, detergents, soaps, clothing. No recent illness and no new foods. She is able to eat and drink without difficulty otherwise. She is urinating normally. Denies any headache, fever, neck pain, changes in vision/speech/mentation/hearing, URI, sore throat, chest pain, palpitations, syncope, cough, shortness of breath, wheeze, dyspnea, abdominal pain, nausea/vomiting/diarrhea, urinary retention, dysuria, hematuria, loss of control of bowel or bladder, numbness/tingling, saddle anesthesia, muscle paralysis/weakness. - ROS Systems Reviewed and Negative: Yes All other systems reviewed and negative Past Medical History - Social History Smoking Status: Never Smoker Family History: None, Reviewed & Not Pertinent Patient has suicidal ideation: No Patient has homicidal ideation: No Pulmonary Medical History: Reports: Hx Asthma - childhood, Hx Bronchitis Renal/ Medical History: Reports: Hx Kidney Stones. Denies: Hx Peritoneal Dialysis Past Surgical History: Reports: Hx Section, Hx Tubal Ligation - Immunizations Hx Diphtheria, Pertussis, Tetanus Vaccination: No Vertical Provider Document - CONSTITUTIONAL Agree With Documented VS: Yes Notes: PHYSICAL EXAMINATION: GENERAL: Well-appearing, well-nourished and in no acute distress. HEAD: Atraumatic, normocephalic. EYES: Pupils equal round and reactive to light, extraocular movements intact, sclera anicteric, conjunctiva are normal. ENT: Nares patent and without discharge. oropharynx clear without exudates. No tonsilar hypertrophy or erythema. Moist mucous membranes. No evidence of angioedema. No drooling or hoarseness. NECK: Normal range of motion, supple without lymphadenopathy LUNGS: Breath sounds clear to auscultation bilaterally and equal. No wheezes rales or rhonchi. HEART: Regular rate and rhythm without murmurs, rubs, gallops. ABDOMEN: Soft, nontender, nondistended abdomen. No guarding, no rebound. Normal bowel sounds present. No CVA tenderness bilaterally. Musculoskeletal: FROM to passive/active. Strength 5+/5. Extremities: No cyanosis, clubbing, or edema b/l. Peripheral pulses 2+. Capillary refill less than 3 seconds. NEUROLOGICAL: Cranial nerves grossly intact. Normal speech, normal gait. Normal sensory, motor exams PSYCH: Normal mood, normal affect. SKIN: There is a dry maculopapular rash noted to the forearms, upper arm of the right side, abdomen, right side of the neck, and antecubital space of the right arm. Most of the areas are in some type of flexor surface. - INFECTION CONTROL TRAVEL OUTSIDE OF THE [place] IN LAST 30 DAYS: No Course - Re-evaluation Re-evalutation: 11/04/19 11:34 Patient is afebrile, well-hydrated 44-year-old female who presents with a nonspecific skin rash I suspect to be dermatitis. Vitals are acceptable. PE is otherwise unremarkable. Patient is nontoxic-appearing and is tolerating p.o. without difficulty. No labs or imaging warranted. Low suspicion for any angioedema, necrotizing fasciitis, SJS, SSS, drug reaction, sepsis, meningitis, syphilis, Lyme disease, Topaz spotted fever, or other systemic emergent condition at this time. Patient aware that condition can change from initial presentation and he needs to monitor symptoms closely and seek medical attention with any acute changes. Recheck with your PCM in 3-5 days. Consider consult with dermatology. Return to the ED with any other worsening/concerning symptoms as reviewed. Patient is in agreement. - Vital Signs Vital signs: Temp Pulse Resp BP Pulse Ox 98.3 F 83 18 141/81 H 99 11/04/19 11:24 11/04/19 11:24 11/04/19 11:24 11/04/19 11:24 11/04/19 11:24 Discharge - Discharge Clinical Impression: Dermatitis, Rash and nonspecific skin eruption Condition: Stable Disposition: HOME, SELF-CARE Additional Instructions: Use benadryl and pepcid as reviewed Keep the skin clean Wash with soap and water Tylenol/ibuprofen if needed Triple antibiotic ointment daily for any break in the skin Take medication as directed Monitor for any worsening symptoms Recheck with your PCM in 3-5 days Consider consult with Dermatology for ongoing/worsening symptoms Return to the ED with any worsening symptoms and/or development of fever, headache, chest pain, palpitations, syncope, shortness of breath, trouble breathing, abdominal pain, n/v/d, abscess, purulent discharge, red streaks, worsening swelling, or other worsening symptoms that are concerning to you. Prescriptions: Prednisone [Deltasone 10 mg Tablet] 10 mg PO ASDIR PRN #21 tablet PRN Reason: Forms: Elevated Blood Pressure Referrals: [facility] [Primary Care Provider] - Follow up as needed JEN LEBRON DO [ACTIVE STAFF] - Follow up as needed
== END 2019-11-04 12:03 | disposition home or self-care (01) ==
LOC: ER 11:20
DX: L30.8 Other specified dermatitis (principal); L29.9 Pruritus, unspecified; Z87.442 Personal history of urinary calculi
CPT/HCPCS: 99282